=== PATIENT | female | born 1945 | race Caucasian/White ===

== ENCOUNTER 2017-11-02 14:22 | Emergency (ER) | payer OTHER, MEDICARE ==
--- NOTE | 2017-11-02 14:58 | PDOC ---
History of Present Illness - General History Source: Patient Exam Limitations: No Limitations - History of Present Illness Initial Comments: 11/02/17 15:53 72 y.o female with significant past medical history of NIDDM, HTN, HLD, GERD, who presents to the emergency room complaining of 1 week of nonproductive cough , runny nose, and congestion that worse at night when lying down and is keeping her up at night. She also notes that her chest is sore from coughing. The patient explains that she visited an Urgent Care on Wednesday 4 days ago and was told she had possible pneumonia. There was confusion about her X Ray and diagnosis so she came to the ED today for further evaluation. She reports that her ENT started her on cefdinir and nasal spray last month, which she has been taking without relief. Denies fever, chills, nausea, vomiting, abdominal pain. Denies brown or colored sputum. Denies sick contact. Denies chest pain, palpitations, SOB, difficulty breathing. Allergies: levofloxacin, iodine, penicillin, shellfish, sulfa, and tetracycline PCP: Dr. Marlon Holman <Bushra Skelton - Last Filed: 11/02/17 15:53> <Darien Huffman - Last Filed: 11/02/17 16:25> - General Chief Complaint: Respiratory Stated Complaint: EVALUATION FOR PNEUMONIA Time Seen by Provider: 11/02/17 14:57 Past History <Bushra Skelton - Last Filed: 11/02/17 15:53> - Past Medical History Anemia: No Asthma: No Cancer: No Cardiac Disorders: No CVA: No COPD: No CHF: No DVT: No Dementia: No Diabetes: Yes GI Disorders: Yes (ACID REFLUX) Disorders: No HTN: Yes Hypercholesterolemia: No Liver Disease: No Seizures: No Thyroid Disease: No - Surgical History Abdominal Surgery: Yes Appendectomy: No Cardiac Surgery: No Cholecystectomy: Yes Lung Surgery: No Neurologic Surgery: No Orthopedic Surgery: Yes (right wrist sx) - Suicide/Smoking/Psychosocial Hx Smoking Status: No Smoking History: Never smoked Have you smoked in the past 12 months: No Number of Cigarettes Smoked Daily: 0 Information on smoking cessation initiated: No Hx Alcohol Use: No Drug/Substance Use Hx: No Substance Use Type: None Hx Substance Use Treatment: No <Darien Huffman - Last Filed: 11/02/17 16:25> - Past Medical History Allergies/Adverse Reactions: Allergies Allergy/AdvReac Type Severity Reaction Status Date / Time levofloxacin [From Levaquin] Allergy Severe Cough Verified 11/02/17 14:25 iodine [Iodine] Allergy Intermediate Rash Verified 11/02/17 14:26 Penicillins Allergy Intermediate Rash Verified 11/02/17 14:26 shellfish derived Allergy Intermediate Rash Verified 11/02/17 14:26 Sulfa (Sulfonamide Allergy Intermediate Rash Verified 11/02/17 14:27 Antibiotics) [Sulfa(Sulfonamide Antibiotics)] tetracycline [Tetracycline] Allergy Intermediate Rash Verified 11/02/17 14:26 Home Medications: Ambulatory Orders Metformin HCl [Glucophage -] 500 mg PO TID 09/05/13 Repaglinide [Prandin] 1 mg PO TID 07/05/16 Wheat Dextrin [Benefiber] 1 each PO TID 07/05/16 Albuterol Sulfate Inhaler - [Ventolin Hfa Inhaler -] 1 - 2 inh PO Q4H #1 inhaler 11/02/17 Amlodipine Besylate [Norvasc -] 2.5 mg PO DAILY 11/02/17 Azithromycin [Zithromax -] 250 mg PO UTDICT #6 tab 11/02/17 Cefuroxime Axetil [Cefuroxime] 500 mg PO DAILY 11/02/17 Esomeprazole Magnesium [Nexium 24Hr] 40 mg PO DAILY 11/02/17 Ipratropium [place] 15 ml NS DAILY 11/02/17 Metoprolol Tartrate 25 mg PO DAILY 11/02/17 Rosuvastatin Calcium [Crestor] 5 mg PO DAILY 11/02/17 Review of Systems - Review of Systems Able to Perform ROS?: Yes Comments:: 11/02/17 15:53 A complete review of 10 out of 10 review of systems is taken and is negative apart from what is previously mentioned below and in the HPI. <Bushra Skelton - Last Filed: 11/02/17 15:53> *Physical Exam - Vital Signs Last Vital Signs Temp Pulse Resp BP Pulse Ox 99.4 F 80 20 131/73 98 11/02/17 14:23 11/02/17 14:23 11/02/17 14:23 11/02/17 14:23 11/02/17 14:23 - Physical Exam Comments: 11/02/17 15:53 Vitals: Triage Vital signs reviewed General Appearance: no acute distress, well nourished well developed Head: Atraumatic Eyes: Pupils equal reactive round, extraocular movement intact Nose: Nares patent bilaterally; + nasal congestion Chest Wall: Nontender Cardiac: Regular rate and rhythym, no murmurs, no rubs, no gallops Lungs: Clear to auscultation bilateral, good air movement bilaterally Skin: Warm and dry, no rashes or lesions, no rash, no petechiae Neuro: AOX3; Cranial Nerves 2-12 grossly intact Psych: Normal mood, normal affect <Bushra Skelton - Last Filed: 11/02/17 15:53> - Vital Signs Last Vital Signs Temp Pulse Resp BP Pulse Ox 99.4 F 80 20 131/73 98 11/02/17 14:23 11/02/17 14:23 11/02/17 14:23 11/02/17 14:23 11/02/17 14:23 <Darien Huffman - Last Filed: 11/02/17 16:25> ED Treatment Course - Medications Given in the ED: ED Medications Discontinued Medications Generic Name Dose Route Start Last Admin Trade Name Freq PRN Reason Stop Dose Admin Albuterol/Ipratropium 1 amp 11/02/17 15:24 11/02/17 15:50 Duoneb - NEB 11/02/17 15:25 1 amp ONCE ONE Administration <Bushra Skelton - Last Filed: 11/02/17 15:53> Medical Decision Making - Medical Decision Making 11/02/17 16:23 Reevaluation: Patient feels better after DuoNeb. History examination consistent with viral URI she has already started Cefdinir she will finish this course Given that she showed improvement after nebulizer treatment we'll discharge home with 1 week course of Ventolin MDI She'll return to emergency department for severe worsening symptoms or for any concerns otherwise she'll follow-up with her doctor this week. <Darien Huffman - Last Filed: 11/02/17 16:25> *DC/Admit/Observation/Transfer - Attestations Scribe Attestion: 11/02/17 15:54 Documentation prepared by PACHECO James, acting as medical dir for Darien Huffman MD <Bushra Skelton - Last Filed: 11/02/17 15:53> - Discharge Dispostion Admit: No <Darien Huffman - Last Filed: 11/02/17 16:25> Diagnosis at time of Disposition: URI (upper respiratory infection) - Discharge Dispostion Condition at time of disposition: Stable - Patient Instructions Printed Discharge Instructions: DI for Viral Upper Respiratory Infection -- Adult
[2017-11-02 14:59] VITALS: BP 131/73; PULSE 80; TEMP 99.4; BMI 28.2
[2017-11-02] MEDS ORDERED: ALBUTEROL SO4 2.5/IPRATROPIUM 0.5 INH SOL 3 ML VIAL.NEB. NEB ONE ×2 (15:24→15:47)
== END 2017-11-02 16:39 | disposition home or self-care (01) ==
LOC: FER 14:22
PROC: 3E0F7GC Introduction of Other Therapeutic Substance into Respiratory Tract, Via Natural or Artificial Opening (ICD-10-PCS; principal; 2017-11-02)
DX: J06.9 Acute upper respiratory infection, unspecified (principal); E11.9 Type 2 diabetes mellitus without complications; I10 Essential (primary) hypertension; E78.5 Hyperlipidemia, unspecified; K21.9 Gastro-esophageal reflux disease without esophagitis
CPT/HCPCS: 71020-TC; 99282-25

== ENCOUNTER 2017-11-05 10:52 | Emergency (ER) | payer OTHER, MEDICARE ==
[2017-11-05 11:15] VITALS: BP 135/77; PULSE 71; TEMP 97.7; BMI 28.2
--- NOTE | 2017-11-05 11:26 | PDOC ---
History of Present Illness - General Chief Complaint: Respiratory Stated Complaint: COUGH Time Seen by Provider: 11/05/17 11:11 - History of Present Illness Initial Comments: 11/05/17 13:03 Chief complaint: Productive cough and wheezing History of present illness: Being treated for respiratory illness with cefuroxime and Robitussin. Continues to cough, yellow and greenish sputum, mild wheezing. Review of systems: No fever/chills, chest pain, or shortness of breath. Remainder systems reviewed and found to be negative Past medical history: No cardiac or pulmonary disease, no asthma, no smoking Social/family history reviewed and noncontributory Physical exam: Alert and oriented well-developed well-nourished no acute distress cheerful and cooperative Afebrile, vital signs stable. No tachypnea or dyspnea. Normal oxygen saturation PERRLA, fundi benign, ENT clear Neck supple without bruit mass or nodes Chest with occasional end expiratory wheezing bilaterally, both bases posteriorly. No rales or rhonchi. No tachypnea. No splinting. CV S1 and S2 normal without murmur rub or gallop pulses full and symmetric no JVD or edema Abdomen benign Extremities no CCE Skin clear, no rash, adequate turgor and wet mucous membranes Neurological intact Impression: Mild viral bronchitis, no shortness of breath, no fever, good oxygen saturation Plan: Finish antibiotics, Robitussin for cough, rest and fluids, return to ER if there is fever, chest pain, or shortness of breath. Fully ambulatory and in no distress respiratory or otherwise upon discharge with her to follow- up as recommended Past History - Past Medical History Allergies/Adverse Reactions: Allergies Allergy/AdvReac Type Severity Reaction Status Date / Time levofloxacin [From Levaquin] Allergy Severe Cough Verified 11/02/17 14:25 iodine [Iodine] Allergy Intermediate Rash Verified 11/02/17 14:26 Penicillins Allergy Intermediate Rash Verified 11/02/17 14:26 shellfish derived Allergy Intermediate Rash Verified 11/02/17 14:26 Sulfa (Sulfonamide Allergy Intermediate Rash Verified 11/02/17 14:27 Antibiotics) [Sulfa(Sulfonamide Antibiotics)] tetracycline [Tetracycline] Allergy Intermediate Rash Verified 11/02/17 14:26 Home Medications: Ambulatory Orders Metformin HCl [Glucophage -] 500 mg PO TID 09/05/13 Repaglinide [Prandin] 1 mg PO TID 07/05/16 Wheat Dextrin [Benefiber] 1 each PO TID 07/05/16 Albuterol Sulfate Inhaler - [Ventolin Hfa Inhaler -] 1 - 2 inh PO Q4H #1 inhaler 11/02/17 Amlodipine Besylate [Norvasc -] 2.5 mg PO HS 11/02/17 Azithromycin [Zithromax -] 250 mg PO UTDICT #6 tab 11/02/17 Cefuroxime Axetil [Cefuroxime] 500 mg PO DAILY 11/02/17 Esomeprazole Magnesium [Nexium 24Hr] 40 mg PO DAILY 11/02/17 Ipratropium [place] 15 ml NS DAILY 11/02/17 Metoprolol Tartrate 25 mg PO HS 11/02/17 Rosuvastatin Calcium [Crestor] 5 mg PO HS 11/02/17 Anemia: No Asthma: No Cancer: No Cardiac Disorders: No CVA: No COPD: No CHF: No DVT: No Dementia: No Diabetes: Yes GI Disorders: Yes (ACID REFLUX) Disorders: No HTN: Yes Hypercholesterolemia: No Liver Disease: No Seizures: No Thyroid Disease: No - Surgical History Abdominal Surgery: Yes Appendectomy: No Cardiac Surgery: No Cholecystectomy: Yes Lung Surgery: No Neurologic Surgery: No Orthopedic Surgery: Yes (right wrist sx) - Suicide/Smoking/Psychosocial Hx Smoking Status: No Smoking History: Never smoked Have you smoked in the past 12 months: No Number of Cigarettes Smoked Daily: 0 Hx Alcohol Use: No Drug/Substance Use Hx: No Substance Use Type: None Hx Substance Use Treatment: No *Physical Exam - Vital Signs Last Vital Signs Temp Pulse Resp BP Pulse Ox 97.7 F 71 16 135/77 99 11/05/17 10:53 11/05/17 10:53 11/05/17 10:53 11/05/17 10:53 11/05/17 10:53 *DC/Admit/Observation/Transfer Diagnosis at time of Disposition: Acute viral bronchitis - Discharge Dispostion Disposition: HOME Condition at time of disposition: Stable Admit: No - Referrals Referrals: Marlon Holman MD [Primary Care Provider] - - Patient Instructions Printed Discharge Instructions: DI for Acute Bronchitis Additional Instructions: Finish antibiotics that you are taking. Continue Robitussin, which will serve as an expectorant (similar to Mucinex) and cough medication. Return to ER if you develop fever/chills, chest pain, shortness of breath, or increased wheezing Otherwise follow-up with your primary physician 3-5 days. - Post Discharge Activity
[2017-11-05] MEDS ORDERED: ALBUTEROL SO4 2.5/IPRATROPIUM 0.5 INH SOL 3 ML VIAL.NEB. NEB ONE ×2 (11:37→12:01)
== END 2017-11-05 13:00 | disposition home or self-care (01) ==
LOC: FER 10:52
PROC: 3E0F7GC Introduction of Other Therapeutic Substance into Respiratory Tract, Via Natural or Artificial Opening (ICD-10-PCS; principal; 2017-11-05)
DX: J20.8 Acute bronchitis due to other specified organisms (principal); B97.89 Other viral agents as the cause of diseases classified elsewhere; E11.9 Type 2 diabetes mellitus without complications; K21.9 Gastro-esophageal reflux disease without esophagitis; I10 Essential (primary) hypertension
CPT/HCPCS: 94640; 99281-25

== ENCOUNTER 2018-03-30 10:23 | Day surgery (SDC) | payer OTHER, MEDICARE ==
[2018-03-22 16:01] VITALS: BMI 28.3
[2018-03-30] MEDS ORDERED: PROPOFOL 20 ML ONE ×2 (10:33)
[2018-03-30 12:54] VITALS: TEMP 97.6
[2018-03-30 13:16] VITALS: BP 136/75; PULSE 60
--- NOTE | 2018-04-01 16:37 | PATH ---
Surgical Pathology Report Patient Name: LYLE NAVARRO [facility]. Rec. #: [id number] /Age/Gender: 1945 (Age: 73) / F Account: [id number] Location: [facility] Taken: 03/30/2018 Received: 03/30/2018 Reported: 04/01/2018 Physicians: Mitzi Reyes M.D. Specimen(s) Received A: 2ND PORTION DUODENUM B: BX ANTRUM C: GE JUNCTION Clinical History Dyspepsia, nausea Gastritis, hiatal hernia Final Diagnosis A. SECOND PORTION DUODENUM, BIOPSY: DUODENAL MUCOSA WITH NO PATHOLOGIC FINDINGS. B. ANTRUM, BIOPSY: MILD CHRONIC GASTRITIS. IMMUNOSTAIN IS NEGATIVE FOR H. PYLORI ORGANISMS. C. GE JUNCTION, BIOPSY: ESOPHAGEAL (SQUAMOUS) MUCOSA WITH NO PATHOLOGIC FINDINGS. NO COLUMNAR EPITHELIUM/INTESTINAL METAPLASIA IS IDENTIFIED. Electronically Signed Tania Quinn M.D. Gross Description A. Received in formalin, labeled "second portion of duodenum" are 2 dominguez, irregular portions of soft tissue measuring 0.3 and 0.4 cm. in greatest dimension. The specimens are submitted in toto in one cassette. B. Received in formalin, labeled "antrum" is a dominguez, irregular portion of soft tissue measuring 0.3 cm. in greatest dimension. The specimen is submitted in toto in one cassette. C. Received in formalin, labeled "GE junction" is a dominguez, irregular portion of soft tissue measuring 0.1 cm. in greatest dimension. The specimen is submitted in toto in one cassette. 03/31/2018 [place]03/31/2018
== END 2018-03-30 13:20 | disposition home or self-care (01) ==
LOC: FASU-ENDO 10:23
PROVIDERS: ATTEND Internal Medicine Gastroenterology
PROC: 0DB68ZX Excision of Stomach, Via Natural or Artificial Opening Endoscopic, Diagnostic (ICD-10-PCS; 2018-03-30)
PROC: 0DB58ZX Excision of Esophagus, Via Natural or Artificial Opening Endoscopic, Diagnostic (ICD-10-PCS; 2018-03-30)
PROC: 0DB98ZX Excision of Duodenum, Via Natural or Artificial Opening Endoscopic, Diagnostic (ICD-10-PCS; principal; 2018-03-30 12:24)
DX: K29.50 Unspecified chronic gastritis without bleeding (principal); R10.13 Epigastric pain; K44.9 Diaphragmatic hernia without obstruction or gangrene
CPT/HCPCS: 82962

== ENCOUNTER 2019-04-30 10:30 | Emergency (ER) | payer OTHER, BC ==
[2019-04-30 10:52] VITALS: BP 152/91; PULSE 77; TEMP 98.3; BMI 28.1
--- NOTE | 2019-04-30 11:37 | PDOC ---
History of Present Illness - General Chief Complaint: Pain Stated Complaint: ABD PAIN Time Seen by Provider: 04/30/19 10:34 History Source: Patient Exam Limitations: No Limitations - History of Present Illness Initial Comments: 74 yo F history DM, HTN, HL presents with intermittent diarrhea and constipation for ~1 week. Symptoms started after eating dinner at a [employer]. Denies any bloody diarrhea, vomiting. No jaundice. She followed up with Dr. Reyes, who sent bloodwork and stool tests, as well as ordering a CT scan of her abdomen and pelvis. Bloodwork was sent to [facility]. Pt presents because she is having cramping, bloating, and rectal pain at times. Denies fever. No recent abx, no recent travel. Past History - Past Medical History Allergies/Adverse Reactions: Allergies Allergy/AdvReac Type Severity Reaction Status Date / Time levofloxacin [From Levaquin] Allergy Severe Cough Verified 04/30/19 10:33 iodine [Iodine] Allergy Intermediate Rash Verified 04/30/19 10:33 Penicillins Allergy Intermediate Swelling Verified 04/30/19 10:33 shellfish derived Allergy Intermediate Rash Verified 04/30/19 10:33 Sulfa (Sulfonamide Allergy Intermediate Rash Verified 04/30/19 10:33 Antibiotics) [Sulfa(Sulfonamide Antibiotics)] tetracycline [Tetracycline] Allergy Intermediate Rash Verified 04/30/19 10:33 seasonal Allergy Uncoded 04/30/19 10:33 Home Medications: Ambulatory Orders metFORMIN HCL [Glucophage -] 1,000 mg PO BID 09/05/13 Repaglinide [Prandin] 1 mg PO TID 07/05/16 Esomeprazole Magnesium [Nexium 24Hr] 40 mg PO DAILY 11/02/17 Metoprolol Tartrate 50 mg PO HS 11/02/17 Amlodipine Besylate 2.5 mg PO DAILY 04/30/19 Atorvastatin Ca [Lipitor] 5 mg PO HS 04/30/19 Dicyclomine HCl [Bentyl -] 20 mg PO Q6H #28 tablet 04/30/19 Docusate Sodium [Stool Softener] 100 mg PO DAILY 04/30/19 Wheat Dextrin [Benefiber] 1 each PO DAILY 04/30/19 Anemia: No Asthma: No Cancer: No Cardiac Disorders: Yes (hx of angina) CVA: No COPD: No CHF: No DVT: No Dementia: No Diabetes: Yes GI Disorders: Yes (GASTROPARESIS,COLON POLYPS, DIVERTICULOSIS, GERD) Disorders: No HTN: Yes Hypercholesterolemia: Yes Liver Disease: No Seizures: No Thyroid Disease: No - Surgical History Abdominal Surgery: Yes Appendectomy: No Cardiac Surgery: Yes (CARDIAC CATH, NO STENTS) Cholecystectomy: Yes Lung Surgery: No Neurologic Surgery: No Orthopedic Surgery: Yes (R wrist sx) - Suicide/Smoking/Psychosocial Hx Smoking Status: No Smoking History: Never smoked Have you smoked in the past 12 months: No Number of Cigarettes Smoked Daily: 0 Information on smoking cessation initiated: No Hx Alcohol Use: No Drug/Substance Use Hx: No Substance Use Type: None Hx Substance Use Treatment: No Review of Systems - Review of Systems Able to Perform ROS?: Yes Comments:: GENERAL/CONSTITUTIONAL: No fever or chills. No weakness. HEAD, EYES, EARS, NOSE AND THROAT: No change in vision. No ear pain or discharge. No sore throat. CARDIOVASCULAR: No chest pain or shortness of breath. RESPIRATORY: No cough, wheezing, or hemoptysis. GASTROINTESTINAL: No nausea, vomiting. +Diarrhea and constipation, alternating. GENITOURINARY: No dysuria, frequency, or change in urination. MUSCULOSKELETAL: No joint or muscle swelling or pain. No neck or back pain. SKIN: No rash. NEUROLOGIC: No headache, vertigo, loss of consciousness, or change in strength/ sensation. ENDOCRINE: No increased thirst. No abnormal weight change. HEMATOLOGIC/LYMPHATIC: No anemia, easy bleeding, or history of blood clots. ALLERGIC/IMMUNOLOGIC: No hives or skin allergy. *Physical Exam - Vital Signs Last Vital Signs Temp Pulse Resp BP Pulse Ox 98.3 F 77 18 152/91 100 04/30/19 10:30 04/30/19 10:30 04/30/19 10:30 04/30/19 10:30 04/30/19 10:30 - Physical Exam Comments: GENERAL: Awake, alert, and fully oriented, in no acute distress HEAD: No signs of trauma EYES: PERRLA, EOMI, sclera anicteric, conjunctiva clear ENT: Auricles normal inspection, hearing grossly normal, nares patent, oropharynx clear without exudates. Moist mucosa NECK: Normal ROM, supple, no lymphadenopathy, JVD, or masses LUNGS: Breath sounds equal, clear to auscultation bilaterally. No wheezes, and no crackles HEART: Regular rate and rhythm, normal S1 and S2, no murmurs, rubs or gallops ABDOMEN: Soft, +diffuse mild tenderness, hypoactive bowel sounds. No guarding, no rebound. No masses EXTREMITIES: Normal range of motion, no edema. No clubbing or cyanosis. No cords, erythema, or tenderness NEUROLOGICAL: Cranial nerves II through XII grossly intact. Normal speech, normal gait. Motor and sensation intact SKIN: Warm, Dry, normal turgor, no rashes or lesions noted. : Noted to have two very small hemorrhoids, not thrombosed, not bleeding. ED Treatment Course - ADDITIONAL ORDERS Additional order review: Laboratory Results 04/30/19 11:00 Urine Color Yellow Urine Appearance Clear Urine pH 5.5 Urine Protein Negative Urine Glucose (UA) Trace Urine Ketones Negative Urine Blood Negative Urine Nitrite Negative Urine Bilirubin Negative Urine Urobilinogen 0.2 Ur Leukocyte Esterase Negative Medical Decision Making - Medical Decision Making 04/30/19 11:51 Contacted [facility] for her bloodwork. Will discuss with Dr. Reyes when I receive the fax. 04/30/19 12:18 Provided patient with a copy of her CT and [facility] results. The only abnormality was her blood glucose. She had a CBC, CMP, amylase, lipase, stool ova and parasites, stool culture, and CDiff. All negative. Will give bentyl as antispasmodic. Patient has f/u with Dr. Reyes tomorrow. We also discussed preparation H and witch kriss for hemorrhoids. Would not recommend stool softeners due to the intermittent diarrhea, but recommended she continue the fiber supplement. *DC/Admit/Observation/Transfer Diagnosis at time of Disposition: Hemorrhoids Qualifiers: Hemorrhoid type: unspecified Qualified Code(s): K64.9 - Unspecified hemorrhoids Diarrhea Qualifiers: Diarrhea type: unspecified type Qualified Code(s): R19.7 - Diarrhea, unspecified Constipation Qualifiers: Constipation type: unspecified constipation type Qualified Code(s): K59.00 - Constipation, unspecified - Discharge Dispostion Disposition: HOME Condition at time of disposition: Stable Decision to Admit order: No - Prescriptions Prescriptions: Dicyclomine HCl [Bentyl -] 20 mg PO Q6H #28 tablet - Referrals Referrals: Mitzi Reyes DO [Staff Physician] - - Patient Instructions Printed Discharge Instructions: DI for Hemorrhoids, DI for Diarrhea and Traveler's Diarrhea -- Adult - Post Discharge Activity
[2019-05-01 16:12] LABS: HEP A AB, IGM Negative (Negative)
== END 2019-04-30 12:25 | disposition home or self-care (01) ==
LOC: FER 10:30
DX: K64.9 Unspecified hemorrhoids (principal); R19.7 Diarrhea, unspecified; K59.00 Constipation, unspecified; E11.9 Type 2 diabetes mellitus without complications; E78.00 Pure hypercholesterolemia, unspecified; I10 Essential (primary) hypertension
CPT/HCPCS: 36415; 81003; 86708; 99283-25

== ENCOUNTER 2019-05-03 18:13 | Emergency (ER) | payer OTHER, BC | END 2019-05-03 22:55 | disposition home or self-care (01) | LOC: FER 18:13 ==

== ENCOUNTER 2019-05-04 17:31 | Inpatient (IN) | payer OTHER, BC ==
[2019-05-04] MEDS ORDERED: SODIUM CHLORIDE 1,000 ML IV STA (17:52)
[2019-05-04] MEDS ORDERED: morphine CARPU-JECT 4 MG/1 ML DISP.SYRIN IVPUSH ONE (18:02)
[2019-05-04] MEDS ORDERED: CEFTRIAXONE 1,000 MG in DEXTROSE 5%-WATER - 50 ML IVPB ONE (18:02)
[2019-05-04] MEDS ORDERED: ONDANSETRON 4 MG/2 ML VIAL IVPB ONE (18:02)
[2019-05-04] MEDS ORDERED: ONDANSETRON 4 MG/2 ML VIAL ONE (18:11)
[2019-05-04] MEDS ORDERED: morphine SULFATE 4 MG/ML VIAL ONE (18:11)
[2019-05-04 18:14] LABS: BASO % 0.2 % (0-2.0); EOS % 0.1 % (0-4.5); HEMATOCRIT 33.5 % (32.4-45.2); HEMOGLOBIN 11.4 GM/dl (10.7-15.3); LYMPH % 9.8 % (8-40); MCH 28.3 pg (25.7-33.7); MCHC 33.9 g/dl (32.0-36.0); MEAN CELL VOLUME 83.6 fl (80-96); MEAN PLT VOLUME 8.4 fl (7.5-11.1); MONO % 6.3 % (3.8-10.2); NEUT % 83.6 % (42.8-82.8); PLATELET COUNT 219 K/MM3 (134-434); RBC 4.01 M/mm3 (3.60-5.2); RDW 13.2 % (11.6-15.6); WHITE BLOOD COUNT 13.7 K/mm3 (4.0-10.8)
[2019-05-04] MEDS ORDERED: cefTRIAXone SODIUM 1 GM VIAL ONE (18:18)
[2019-05-04 18:26] LABS: ALBUMIN 3.5 g/dl (3.4-5.0); BILIRUBIN,TOTAL 0.9 mg/dl (0.2-1); CALCIUM 8.2 mg/dl (8.5-10); CREATININE 0.6 mg/dl (0.55-1.3); POTASSIUM 3.7 mmol/L (3.5-5.1); TOT PROT 6.2 g/dl (6.4-8.2)
[2019-05-04] MEDS ORDERED: ACETAMINOPHEN 1000 MG/100 ML VIAL (NON FORMULARY) IVPB ONE (18:30)
--- NOTE | 2019-05-04 18:34 | PDOC ---
Documentation entered by Alan Smith SCRIBE, acting as scribe for Talha Leon MD. Talha Leon MD: This documentation has been prepared by the Luis chapa Collisia, SCRIBE, under my direction and personally reviewed by me in its entirety. I confirm that the documentation accurately reflects all work, treatment, procedures, and medical decision making performed by me. History of Present Illness - General Chief Complaint: Pain, Acute Stated Complaint: ABD PAIN Time Seen by Provider: 05/04/19 17:33 History Source: Patient Exam Limitations: No Limitations - History of Present Illness Initial Comments: 05/04/19 18:21 The patient is a 74 year old female with a significant past medical history of diabetes, hypertension, hyperlipidemia and GERD who presents to the emergency department with diffuse epigastric pain for 2 days . The patient states that she was sent to the ED from PCP office for admission of Diverticulitis. The patient was seen in the ED yesterday for similar symptoms by which she was discharged. She states that after taking her flagyl medication today she began to have episodes of vomiting( a metallic taste) and she has not been able to keep anything down. The patient reports having a normal bm this morning. She denies any fever, chills, diarrhea. She also endorses some associated rectum pain with her symptoms as well. The patient denies any other symptoms or complaints. Past History - Past Medical History Allergies/Adverse Reactions: Allergies Allergy/AdvReac Type Severity Reaction Status Date / Time levofloxacin [From Levaquin] Allergy Severe Cough Verified 05/04/19 17:32 iodine [Iodine] Allergy Intermediate Rash Verified 05/04/19 17:32 Penicillins Allergy Intermediate Swelling Verified 05/04/19 17:32 shellfish derived Allergy Intermediate Rash Verified 05/04/19 17:32 Sulfa (Sulfonamide Allergy Intermediate Rash Verified 05/04/19 17:32 Antibiotics) [Sulfa(Sulfonamide Antibiotics)] tetracycline [Tetracycline] Allergy Intermediate Rash Verified 05/04/19 17:32 seasonal Allergy Uncoded 05/04/19 17:32 Home Medications: Ambulatory Orders metFORMIN HCL [Glucophage -] 1,000 mg PO BID 09/05/13 Repaglinide [Prandin] 1 mg PO TID 07/05/16 Esomeprazole Magnesium [Nexium 24Hr] 40 mg PO DAILY 11/02/17 Metoprolol Tartrate 50 mg PO HS 11/02/17 Amlodipine Besylate 2.5 mg PO DAILY 04/30/19 Atorvastatin Ca [Lipitor] 5 mg PO HS 04/30/19 Cefuroxime Axetil [Ceftin -] 500 mg PO Q12H #20 tablet 05/03/19 metroNIDAZOLE [Flagyl -] 500 mg PO TID #30 tablet 05/03/19 Anemia: No Asthma: No Cancer: No Cardiac Disorders: Yes (hx of angina) CVA: No COPD: No CHF: No DVT: No Dementia: No Diabetes: Yes GI Disorders: Yes (GASTROPARESIS,COLON POLYPS, DIVERTICULOSIS, GERD) Disorders: No HTN: Yes Hypercholesterolemia: Yes Liver Disease: No Seizures: No Thyroid Disease: No - Surgical History Abdominal Surgery: Yes Appendectomy: No Cardiac Surgery: Yes (CARDIAC CATH, NO STENTS) Cholecystectomy: Yes Lung Surgery: No Neurologic Surgery: No Orthopedic Surgery: Yes (R wrist sx) - Suicide/Smoking/Psychosocial Hx Smoking Status: No Smoking History: Never smoked Have you smoked in the past 12 months: No Number of Cigarettes Smoked Daily: 0 Hx Alcohol Use: No Drug/Substance Use Hx: No Substance Use Type: None Hx Substance Use Treatment: No Review of Systems - Review of Systems Able to Perform ROS?: Yes Comments:: 05/04/19 18:21 GENERAL/CONSTITUTIONAL: No fever or chills. No weakness. HEAD, EYES, EARS, NOSE AND THROAT: No change in vision. No ear pain or discharge. No sore throat. CARDIOVASCULAR: No chest pain or shortness of breath. RESPIRATORY: No cough, wheezing, or hemoptysis. GASTROINTESTINAL: (+)epigastric pain, vomiting. No nausea, diarrhea or constipation. GENITOURINARY: No dysuria, frequency, or change in urination. MUSCULOSKELETAL: No joint or muscle swelling or pain. No neck or back pain. SKIN: No rash NEUROLOGIC: No headache, vertigo, loss of consciousness, or change in strength/ sensation. ENDOCRINE: No increased thirst. No abnormal weight change. HEMATOLOGIC/LYMPHATIC: No anemia, easy bleeding, or history of blood clots. ALLERGIC/IMMUNOLOGIC: No hives or skin allergy. *Physical Exam - Vital Signs Last Vital Signs Temp Pulse Resp BP Pulse Ox 98.2 F 81 20 150/79 100 05/04/19 17:32 05/04/19 17:32 05/04/19 17:32 05/04/19 17:32 05/04/19 17:32 - Physical Exam Comments: 05/04/19 18:40 GENERAL: Awake, alert, and fully oriented, in no acute distress HEAD: No signs of trauma EYES: PERRLA, EOMI, sclera anicteric, conjunctiva clear ENT: (+)dry mucous membrane. Auricles normal inspection, hearing grossly normal , nares patent, oropharynx clear without exudates. NECK: Normal ROM, supple, no lymphadenopathy, JVD, or masses LUNGS: Breath sounds equal, clear to auscultation bilaterally. No wheezes, and no crackles HEART: Regular rate and rhythm, normal S1 and S2, no murmurs, rubs or gallops ABDOMEN: (+)general abdominal discomfort worse in periumbilical area. Soft, normoactive bowel sounds. No guarding, no rebound. No masses EXTREMITIES: Normal range of motion, no edema. No clubbing or cyanosis. No cords, erythema, or tenderness NEUROLOGICAL: Cranial nerves II through XII grossly intact. Normal speech, SKIN: Warm, Dry, normal turgor, no rashes or lesions noted. Heart Score/ECG Review #1 ECG reviewed & interpreted by me at: 18:15 05/04/19 18:34 NSR 90, nonspecific ST and T wave changes II, III, avF, I, avL, V5-V6, no std/ suhas, QTC 462 msec ED Treatment Course - LABORATORY CBC & Chemistry Diagram: 05/04/19 17:52 05/04/19 17:52 - ADDITIONAL ORDERS Additional order review: Laboratory Results 05/04/19 17:52 Sodium 130 L Potassium 3.7 Chloride 99 Carbon Dioxide 21 Anion Gap 10 BUN 8.0 Creatinine 0.6 Est GFR (CKD-EPI)AfAm 105.54 Est GFR (CKD-EPI)NonAf 91.06 Random Glucose 101 Calcium 8.2 L Total Bilirubin 0.9 AST 26 ALT 24 Alkaline Phosphatase 47 Total Protein 6.2 L Albumin 3.5 05/04/19 17:52 RBC 4.01 MCV 83.6 MCHC 33.9 RDW 13.2 MPV 8.4 Neutrophils % 83.6 H Lymphocytes % 9.8 Monocytes % 6.3 Eosinophils % 0.1 Basophils % 0.2 - Medications Given in the ED: ED Medications Discontinued Medications Generic Name Dose Route Start Last Admin Trade Name Jovita PRN Reason Stop Dose Admin Ceftriaxone Sodium 1,000 mg/ 50 mls @ 100 mls/hr 05/04/19 18:02 05/04/19 18: 22 Dextrose IVPB 05/04/19 18:31 100 mls/hr ONCE ONE Administration Morphine Sulfate 4 mg 05/04/19 18:02 05/04/19 18:15 Morphine Injection - IVPUSH 05/04/19 18:03 4 mg ONCE ONE Administration Ondansetron HCl 4 mg 05/04/19 18:02 05/04/19 18:15 Zofran Injection IVPB 05/04/19 18:03 4 mg ONCE ONE Administration Medical Decision Making - Medical Decision Making 05/04/19 18:33 A portion of this note was documented by scribe services under my direction. I have reviewed the details of the note, within reason, and agree with the documentation with the following case summary and management plan written by me. Patient treated in the ED. Nursing notes are reviewed and incorporated into the medical decision-making. Vital signs reviewed. Peripheral IV access obtained by the nurse, laboratory studies are drawn and sent, reviewed and interpreted by myself. Vital Signs Temp Pulse Resp BP Pulse Ox 98.2 F 81 20 150/79 100 05/04/19 17:32 05/04/19 17:32 05/04/19 17:32 05/04/19 17:32 05/04/19 17:32 74-year-old female with history of diabetes, hypertension sent in by her primary care physician for admission for acute diverticulitis. The patient was recently seen here yesterday diagnosed with acute on complicated diverticulitis. The patient is discharged home on Ceftin and Flagyl. Patient reports that she tolerated Ceftin well but reported severe nausea and vomiting with the Flagyl. The patient stated that she has been unable to tolerate any of her medication and has severe nausea and unable tolerate by mouth fluids. Patient contacted her doctor who then directed patient ER. Patient denies fevers but reports persistent abdominal pain of similar quality and intensity as yesterday. Given that the patient has failed outpatient management unable to tolerate by mouth, the patient should be admitted to the hospital for IV antibiotics. We'll initiate IV ceftriaxone and IV Flagyl given her multiple drug ALLERGIES. Patient reports tolerating cephalosporins prior so we'll continue it. We'll give IV fluids and admit the patient to the hospital. 05/04/19 18:51 CBC, BMP 05/04/19 17:52 05/04/19 17:52 CMP Sodium 130 mmol/L (136-145) L 05/04/19 17:52 Potassium 3.7 mmol/L (3.5-5.1) 05/04/19 17:52 Chloride 99 mmol/L (98-107) 05/04/19 17:52 Carbon Dioxide 21 mmol/L (21-32) 05/04/19 17:52 Anion Gap 10 MMOL/L (8-16) 05/04/19 17:52 BUN 8.0 mg/dl (7-18) 05/04/19 17:52 Creatinine 0.6 mg/dl (0.55-1.3) 05/04/19 17:52 Est GFR (CKD-EPI)AfAm 105.54 05/04/19 17:52 Est GFR (CKD-EPI)NonAf 91.06 05/04/19 17:52 Random Glucose 101 mg/dl (74-106) 05/04/19 17:52 Calcium 8.2 mg/dl (8.5-10) L 05/04/19 17:52 Total Bilirubin 0.9 mg/dl (0.2-1) 05/04/19 17:52 AST 26 U/L (15-37) 05/04/19 17:52 ALT 24 U/L (13-61) 05/04/19 17:52 Alkaline Phosphatase 47 U/L (45-117) 05/04/19 17:52 Troponin I < 0.03 ng/ml (0.00-0.05) 05/04/19 17:52 Total Protein 6.2 g/dl (6.4-8.2) L 05/04/19 17:52 Albumin 3.5 g/dl (3.4-5.0) 05/04/19 17:[address] Anthony. He accepts to med/surg admission. Case discussed in detail with admitting physician including history, physical exam and ancillary studies. Admitting physician has assumed care for the patient, will follow all pending diagnostics and will complete the evaluation and treatment. *DC/Admit/Observation/Transfer Diagnosis at time of Disposition: Diverticulitis - Discharge Dispostion Condition at time of disposition: Stable Decision to Admit order: Yes - Referrals Referrals: Marlon Holman MD [Primary Care Provider] - - Patient Instructions - Post Discharge Activity
[2019-05-04] MEDS ORDERED: ACETAMINOPHEN INJECTION 100 ML IVPB ONE (18:35)
--- NOTE | 2019-05-04 19:46 | HP ---
CHIEF COMPLAINT: Abdominal Pain, Vomiting PCP: Dr. Cain HISTORY OF PRESENT ILLNESS: This is a 74 y/o woman with a PMHx of HTN, HLD, CAD s/p Cardiac Cath, Angina, DM. Who presents to the ED sent in by his PMD for admission for epigastric pain x2 days. Patient was seen in the ED 04/30, 05/03 diagnosed with Diverticulitis and placed on Flagyl, Ceftin. Patient reports having a metallic taste and vomiting -non bloody, bilious after taking Flagyl, unable to tolerate it and anything PO. Patient reports being constipated and not urinating yesterday taking miralax, benefiber and stool softeners. Patient reports having loose stools, rectal pain, and abdominal cramping, and voiding today. Patient reports having diverticulitis years ago taking ABX without issue. Patient reports being seen last Wednesday by her GI for same. Patient denies fever, chills, cough, CP, palpitations, dysuria. ER course was notable for: (1) WBC 13.7, L shift (2) NA 130 (3) Stool Occult- negative Recent Travel: None PAST MEDICAL HISTORY: HTN HLD DM CAD- Cardiac Cath- no stents Angina GERD Diverticulosis Gastroparesis PAST SURGICAL HISTORY: Cholecystectomy R - Wrist Social History: Smoking: Never Alcohol: None Drugs: None Resides with spouse, independent, retired Family History: Grandmother- DM Allergies levofloxacin [From Levaquin] Allergy (Severe, Verified 05/04/19 17:32) Cough PALPITATIONS iodine [Iodine] Allergy (Intermediate, Verified 05/04/19 17:32) Rash Penicillins Allergy (Intermediate, Verified 05/04/19 17:32) Swelling shellfish derived Allergy (Intermediate, Verified 05/04/19 17:32) Rash Sulfa (Sulfonamide Antibiotics) [Sulfa(Sulfonamide Antibiotics)] Allergy ( Intermediate, Verified 05/04/19 17:32) Rash tetracycline [Tetracycline] Allergy (Intermediate, Verified 05/04/19 17:32) Rash seasonal Allergy (Uncoded 05/04/19 17:32) HOME MEDICATIONS: Home Medications Medication Instructions Recorded metFORMIN HCL [Glucophage -] 1,000 mg PO BID 09/05/13 Repaglinide [Prandin] 1 mg PO TID 07/05/16 Esomeprazole Magnesium [Nexium 40 mg PO DAILY 11/02/17 24Hr] Metoprolol Tartrate 50 mg PO HS 11/02/17 Amlodipine Besylate 2.5 mg PO DAILY 04/30/19 Atorvastatin Ca [Lipitor] 5 mg PO HS 04/30/19 Cefuroxime Axetil [Ceftin -] 500 mg PO Q12H #20 tablet 05/03/19 metroNIDAZOLE [Flagyl -] 500 mg PO TID #30 tablet 05/03/19 REVIEW OF SYSTEMS CONSTITUTIONAL: Absent: fever, chills, diaphoresis, generalized weakness, malaise, loss of appetite, weight change HEENT: Absent: rhinorrhea, nasal congestion, throat pain, throat swelling, difficulty swallowing, mouth swelling, ear pain, eye pain, visual changes CARDIOVASCULAR: Absent: chest pain, syncope, palpitations, irregular heart rate, lightheadedness , peripheral edema RESPIRATORY: Absent: cough, shortness of breath, dyspnea with exertion, orthopnea, wheezing, stridor, hemoptysis GASTROINTESTINAL: abdominal pain, nausea, vomiting Absent: abdominal distension, diarrhea, constipation, melena, hematochezia GENITOURINARY: Absent: dysuria, frequency, urgency, hesitancy, hematuria, flank pain, genital pain MUSCULOSKELETAL: Absent: myalgia, arthralgia, joint swelling, back pain, neck pain SKIN: Absent: rash, itching, pallor HEMATOLOGIC/IMMUNOLOGIC: Absent: easy bleeding, easy bruising, lymphadenopathy, frequent infections ENDOCRINE: Absent: unexplained weight gain, unexplained weight loss, heat intolerance, cold intolerance NEUROLOGIC: Absent: headache, focal weakness or paresthesias, dizziness, unsteady gait, seizure, mental status changes, bladder or bowel incontinence PSYCHIATRIC: Absent: anxiety, depression, suicidal or homicidal ideation, hallucinations. PHYSICAL EXAMINATION Vital Signs - 24 hr 05/04/19 17:32 Temperature 98.2 F Pulse Rate 81 Respiratory 20 Rate Blood Pressure 150/79 O2 Sat by Pulse 100 Oximetry (%) GENERAL: Awake, alert, and fully oriented, in mild distress. HEAD: Normal with no signs of trauma. EYES: Pupils equal, round and reactive to light, extraocular movements intact, sclera anicteric, conjunctiva clear. No lid lag. EARS, NOSE, THROAT: Dry mucous membranes. Ears normal, nares patent, oropharynx clear without exudates. NECK: Normal range of motion, supple without lymphadenopathy, JVD, or masses. LUNGS: Breath sounds equal, clear to auscultation bilaterally. No wheezes, and no crackles. No accessory muscle use. HEART: Regular rate and rhythm, normal S1 and S2 without murmur, rub or gallop. ABDOMEN: Generalized tenderness, distended, hyperactive bowel sounds, Soft no guarding, no rebound, no masses. No hepatomegaly or splenomegaly. MUSCULOSKELETAL: Normal range of motion at all joints. No bony deformities or tenderness. No CVA tenderness. UPPER EXTREMITIES: 2+ pulses, warm, well-perfused. No cyanosis. No clubbing. No peripheral edema. LOWER EXTREMITIES: 2+ pulses, warm, well-perfused. No calf tenderness. Trace b/ l peripheral edema. NEUROLOGICAL: Cranial nerves II-XII intact. Normal speech. Gait not observed. PSYCHIATRIC: Cooperative. Good eye contact. Appropriate mood and affect. SKIN: Warm, dry, normal turgor, no rashes or lesions noted, normal capillary refill. Laboratory Results - last 24 hr 05/04/19 05/04/19 05/04/19 17:52 17:52 17:52 WBC 13.7 H RBC 4.01 Hgb 11.4 Hct 33.5 MCV 83.6 MCH 28.3 MCHC 33.9 RDW 13.2 Plt Count 219 MPV 8.4 Absolute Neuts (auto) 11.5 Neutrophils % 83.6 H Lymphocytes % 9.8 Monocytes % 6.3 Eosinophils % 0.1 Basophils % 0.2 Sodium 130 L Potassium 3.7 Chloride 99 Carbon Dioxide 21 Anion Gap 10 BUN 8.0 Creatinine 0.6 Est GFR (CKD-EPI)AfAm 105.54 Est GFR (CKD-EPI)NonAf 91.06 Random Glucose 101 Lactic Acid 2.0 Calcium 8.2 L Total Bilirubin 0.9 AST 26 ALT 24 Alkaline Phosphatase 47 Troponin I Total Protein 6.2 L Albumin 3.5 Lipase 79 05/04/19 17:52 WBC RBC Hgb Hct MCV MCH MCHC RDW Plt Count MPV Absolute Neuts (auto) Neutrophils % Lymphocytes % Monocytes % Eosinophils % Basophils % Sodium Potassium Chloride Carbon Dioxide Anion Gap BUN Creatinine Est GFR (CKD-EPI)AfAm Est GFR (CKD-EPI)NonAf Random Glucose Lactic Acid Calcium Total Bilirubin AST ALT Alkaline Phosphatase Troponin I < 0.03 Total Protein Albumin Lipase ASSESSMENT/PLAN: This is a 74 y/o woman with a PMHx of: HTN, HLD, CAD (cardiac cath), Angina, Gastroparesis, DM. Admitted for Acute Diverticulitis, Failed Outpatient Therapy , Intractable Abdominal Pain for further evaluation of their emergent condition. Plan: See Problem List FEN NS@75ml/hr Replete lytes prn Clear Na, Diabetic Diet DVT ppx OOB SCDs Heparin SQ Dispo: Requires Inpatient Care Problem List - Problem (1) Diverticulitis Assessment/Plan: Failed Outpatient Therapy secondary to unable to tolerate PO meds CTAP from 05/03- Diverticulitis WBC 13.7, Neutrophils 83.6 Lactic Acid 2.0 Rocephin, Flagyl given in ED, will continue Appreciate ID consult- multiple drug allergies- ABX Appreciate GI consult Morphine Sulfate prn Clear Liquid Diet ad nasir IVF Monitor CBC, BMP Monitor vitals Code(s): K57.92 - DVTRCLI OF INTEST, PART UNSP, W/O PERF OR ABSCESS W/O BLEED (2) Abdominal pain Assessment/Plan: See above Code(s): R10.9 - UNSPECIFIED ABDOMINAL PAIN (3) GERD (gastroesophageal reflux disease) Assessment/Plan: Continue PPI Code(s): K21.9 - GASTRO-ESOPHAGEAL REFLUX DISEASE WITHOUT ESOPHAGITIS (4) CAD (coronary artery disease) Assessment/Plan: Continue home meds Code(s): I25.10 - ATHSCL HEART DISEASE OF [place] CORONARY ARTERY W/O ANG PCTRS (5) HTN (hypertension) Assessment/Plan: stable Continue home meds Monitor renal function Code(s): I10 - ESSENTIAL (PRIMARY) HYPERTENSION (6) HLD (hyperlipidemia) Assessment/Plan: Continue home med Code(s): E78.5 - HYPERLIPIDEMIA, UNSPECIFIED Visit type - Emergency Visit Emergency Visit: Yes ED Registration Date: 05/04/19 Care time: The patient presented to the Emergency Department on the above date and was hospitalized for further evaluation of their emergent condition. - New Patient This patient is new to me today: Yes Date on this admission: 05/04/19 - Critical Care Critical Care patient: No
[2019-05-04] MEDS ORDERED: METOCLOPRAMIDE HCL INJECTION 10 MG/2 ML VIAL IVPUSH ONE (19:54)
[2019-05-04] MEDS ORDERED: METOCLOPRAMIDE HCL INJECTION 10 MG/2 ML VIAL ONE (19:55)
[2019-05-04] MEDS: SODIUM CHLORIDE 1,000 ML IV SCH (19:59)
[2019-05-04 20:50] VITALS: BMI 27.9
[2019-05-04] MEDS: HEPARIN NA (PORCINE) 5,000 UNITS/ML 1ML VIAL SQ SCH (21:24)
[2019-05-04] MEDS ORDERED: morphine SULFATE 4 MG/ML VIAL IVPUSH PRN (22:00)
[2019-05-05] MEDS ORDERED: ONDANSETRON 4 MG/2 ML VIAL IVPUSH ONE (00:04)
[2019-05-05 08:09] LABS: BASO % 0.1 % (0-2.0); EOS % 0.1 % (0-4.5); HEMATOCRIT 33.9 % (32.4-45.2); HEMOGLOBIN 11.4 GM/dl (10.7-15.3); LYMPH % 9.1 % (8-40); MCH 28.9 pg (25.7-33.7); MCHC 33.7 g/dl (32.0-36.0); MEAN CELL VOLUME 85.8 fl (80-96); MONO % 5.8 % (3.8-10.2); NEUT % 84.9 % (42.8-82.8); PLATELET COUNT 242 K/MM3 (134-434); RBC 3.95 M/mm3 (3.60-5.2); RDW 13.6 % (11.6-15.6); WHITE BLOOD COUNT 15.3 K/mm3 (4.0-10.8)
[2019-05-05 08:20] LABS: CALCIUM 7.8 mg/dl (8.5-10); CREATININE 0.6 mg/dl (0.55-1.3); POTASSIUM 3.1 mmol/L (3.5-5.1)
--- NOTE | 2019-05-05 09:57 | PN ---
Progress Note (short form) - Note Progress Note: ID CONSULT DICTATED ACUTE UNCOMPLICATED SIGMOID DIVERTICULITIS MULTIPLE ANTIBIOTIC ALLERGIES AWAIT C/S EMPIRIC CEFTRIAXONE/ FLAGYL
[2019-05-05] MEDS ORDERED: amLODIPine BESYLATE 5 MG TABLET (FP) PO SCH (10:00)
[2019-05-05] MEDS ORDERED: CEFTRIAXONE 1 G/50 ML PREMIX 50 ML IVPB SCH (10:00)
[2019-05-05] MEDS: FAMOTIDINE 20 MG/50 ML IVPB 20 MG/50 ML MG IVPB SCH ×2 (10:04→21:14)
[2019-05-05] MEDS: HEPARIN NA (PORCINE) 5,000 UNITS/ML 1ML VIAL SQ SCH ×2 (10:05→21:25)
--- NOTE | 2019-05-05 11:26 | EKG ---
Test Reason : Blood Pressure : / mmHG Vent. Rate : 090 BPM Atrial Rate : 090 BPM P-R Int : 168 ms QRS Dur : 080 ms QT Int : 378 ms P-R-T Axes : 071 036 -34 degrees QTc Int : 462 ms NORMAL SINUS RHYTHM WITH SINUS ARRHYTHMIA POSSIBLE LATERAL INFARCT , AGE UNDETERMINED T WAVE ABNORMALITY, CONSIDER INFERIOR ISCHEMIA ABNORMAL ECG Confirmed by ADITYA NARVAEZ MD ([id number]) on 05/05/2019 11:25:48 AM Referred By: DR MENDOZA Confirmed By:ADITYA NARVAEZ MD
--- NOTE | 2019-05-05 12:51 | CONS ---
DATE OF CONSULTATION: DATE OF DICTATION: 05/05/2019 HISTORY OF PRESENT ILLNESS: The patient is a 74-year-old female who is evaluated for acute diverticulitis. The patient was evaluated in the emergency room on May 04, 2019, with complaints of worsening epigastric and left lower quadrant abdominal pain. The patient states that symptoms occurred on the day prior to Fathers Day, 2018. She had had a meal at a steak house. While there, she developed an acute episode of diarrhea. Since that time, she had complaints of intermittent abdominal pain associated with loose bowel movements. She was seen on 2 occasions in the emergency room at [facility]. On April 30, 2019, she was evaluated after presenting with intermittent diarrhea and constipation. She had had a CT scan on April 27, 2019, which was negative for acute pathology. She was discharged home with followup with her news content specialist. The patient returned to the emergency room on May 03, 2019, at which time, she was evaluated, and a followup CT scan was performed. In comparison to the previous CT scan of April 27, there was interval development of uncomplicated acute sigmoid diverticulitis. She was discharged from the emergency room with oral cefuroxime and Flagyl. Patient states that while home, she continued to have pain and was unable to tolerate the oral antibiotic therapy. She developed nausea, vomiting, and was unable to keep anything down. She contacted her primary care physician and was advised to return to the emergency room. The patient is now admitted. Cultures were obtained. She was empirically treated with ceftriaxone and Flagyl. She has some improvement in the abdominal pain. No complaints of recurrent nausea or vomiting. She continues to have loose non-bloody stool. No associated fever or chills. PAST MEDICAL HISTORY: Positive for diverticulosis, hypertension, diabetes mellitus, hyperlipidemia, gastroesophageal reflux, coronary artery disease. PAST SURGICAL HISTORY: Status post cholecystectomy. ALLERGIES: Multiple antibiotic allergies including PENICILLIN (facial swelling), SULFA (rash), LEVAQUIN (palpitations), and TETRACYCLINE. CURRENT MEDICATIONS: Include Tylenol, amlodipine, Lipitor, ceftriaxone, metronidazole. SOCIAL HISTORY: She lives at home with her significant other. She is a nonsmoker, nondrinker. SYSTEMS REVIEW: Neurologic: No loss of consciousness, seizure activity, or focal weakness. Cardiac: Negative for chest pain or palpitations. Respiratory: Negative for cough or sputum production. Gastrointestinal: As per HPI. Genitourinary: Negative for urinary tract infection. LABORATORY DATA: White count 15.3, hematocrit 33.9, platelet count 242. Chemistries: BUN 6, creatinine 0.6. Liver enzymes are normal. Urinalysis negative. Blood cultures pending. PHYSICAL EXAMINATION: General: The patient is awake and alert, not acutely toxic-appearing, supine in bed. Vital signs: Temperature 98.4, blood pressure 129/61, pulse 83 and regular, respirations 18 per minute. HEENT: Sclerae anicteric. Heart: Heart sounds S1, S2. Lungs: Clear bilaterally. No rhonchi, rales, or wheezing. Abdomen: Hypoactive bowel sounds. There is mild left lower quadrant tenderness to deep palpation. No mass, rebound, or rigidity. Extremities: Negative for edema. Negative Homans sign. IMPRESSION: 1. Acute uncomplicated sigmoid diverticulitis. 2. Multiple antibiotic allergies. 3. Leukocytosis. Await culture results and GI evaluation, empiric antibiotic coverage in this patient with multiple antibiotic allergies with ceftriaxone and metronidazole. Thank you for the kind referral. ADITYA PADILLA M.D. [id number]
--- NOTE | 2019-05-05 12:59 | PN ---
Progress Note, Physician Chief Complaint: abdominal pain History of Present Illness: 74 y/o woman with a PMHx of HTN, HLD, CAD s/p Cardiac Cath, Angina, DM. Who presents to the ED sent in by his PMD for admission for epigastric pain for the past 2 days. - Current Medication List Current Medications: Active Medications Amlodipine Besylate (Norvasc -) 2.5 mg PO DAILY [facility] Last Admin: 05/05/19 10:05 Dose: 2.5 mg Atorvastatin Calcium (Lipitor -) 5 mg PO HS [facility] Heparin Sodium (Porcine) (Heparin -) 5,000 unit SQ BID [facility] Last Admin: 05/05/19 10:05 Dose: 5,000 unit Sodium Chloride (Normal Saline -) 1,000 mls @ 75 mls/hr IV ASDIR [facility] Last Admin: 05/04/19 19:59 Dose: 75 mls/hr Metronidazole (Flagyl 500mg Premixed Ivpb -) 500 mg in 100 mls @ 100 mls/hr IVPB Q8H-IV [facility] Last Admin: 05/05/19 10:04 Dose: 100 mls/hr Famotidine/Sodium Chloride (Pepcid 20 Mg Premixed Ivpb -) 20 mg in 50 mls @ 100 mls/hr IVPB BID [facility] Last Admin: 05/05/19 10:04 Dose: 100 mls/hr Ceftriaxone Sodium (Ceftriaxone 2 Gm-D5w Bag) 2 gm in 50 mls @ 100 mls/hr IVPB DAILY [facility]; Protocol Metoprolol Tartrate (Lopressor -) 50 mg PO HS [facility] Morphine Sulfate (Morphine Sulfate) 4 mg IVPUSH Q6H PRN PRN Reason: PAIN LEVEL 7 - 10 Last Admin: 05/05/19 02:14 Dose: 4 mg - Objective Vital Signs: Vital Signs Temperature 98.4 F 05/05/19 06:00 Pulse Rate 83 05/05/19 06:00 Respiratory Rate 18 05/05/19 09:00 Blood Pressure 129/61 05/05/19 06:00 O2 Sat by Pulse Oximetry (%) 99 05/05/19 09:00 Constitutional: Yes: Well Nourished, No Distress, Calm Eyes: Yes: WNL HENT: Yes: WNL Neck: Yes: WNL Cardiovascular: Yes: WNL Respiratory: Yes: WNL Gastrointestinal: Yes: Soft, Hypoactive Bowel Sounds, Tenderness, Tenderness, Epigastrium Genitourinary: Yes: WNL Musculoskeletal: Yes: WNL Extremities: Yes: WNL Edema: No Peripheral Pulses WNL: Yes Integumentary: Yes: WNL Neurological: Yes: WNL ...Motor Strength: WNL Psychiatric: Yes: WNL Labs: CBC, BMP 05/05/19 07:42 05/05/19 07:42 Assessment/Plan 74 yo lady comes in with acute diverticulitis. ID eval appreciated. on IV ceftriaxone, PO flagyl. surgical eval pending. -clear liquid diet. will likely advance to low residue tomorrow. -GI, DVT prophylaxis. -HTN: on amlodipine. -type 2 DM: holding oral meds. will resume tomorrow if diet is advanced. -OOB as tolerated -will DC home once PO diet tolerated, off IV meds.
--- NOTE | 2019-05-05 13:26 | CON.PULM ---
Consult Consult Specialty:: PULMONARY Referred by:: JANET Reason for Consultation:: SOB - History of Present Illness Chief Complaint: SOB History of Present Illness: RECENT DIAGNOSIS OF ACUTE DIVERTICULITIS SENT HOME FROM ER THE DAY BEFORE. SHE DEVELOPED N/V AND VLOATING WITH INABILITY TO KEEP LIQUIDS DOWN. I SUGGESTED ADMISSION FOR IV ABS TREATMENT AND FLUID RESUSCITATION. - History Source History Provided By: Patient, Medical Record Limitations to Obtaining History: No Limitations - Past Medical History ADJUSTER AND INSPECTOR: No: Alzheimer's Cardio/Vascular: No: AFIB Pulmonary: No: Asthma Gastrointestinal: Yes: GERD, Hiatal Hernia (GASTROPARESIS, VISCERAL NEUROPATHY) , Other Hepatobiliary: No: Cirrhosis Renal/: No: Renal Failure Reproductive: Yes: Postmenopausal ...: No Heme/Onc: Yes: Anemia Endocrine: Yes: Diabetes Mellitus - Past Surgical History Past Surgical History: Yes: Hysterectomy - Alcohol/Substance Use Hx Alcohol Use: No History of Substance Use: reports: None - Smoking History Smoking history: Never smoked Have you smoked in the past 12 months: No Aproximately how many cigarettes per day: 0 - Social History ADL: Independent Occupation: Retired History of Recent Travel: No Home Medications - Allergies Allergies/Adverse Reactions: Allergies Allergy/AdvReac Type Severity Reaction Status Date / Time levofloxacin [From Levaquin] Allergy Severe Cough Verified 05/04/19 17:32 iodine [Iodine] Allergy Intermediate Rash Verified 05/04/19 17:32 Penicillins Allergy Intermediate Swelling Verified 05/04/19 17:32 shellfish derived Allergy Intermediate Rash Verified 05/04/19 17:32 Sulfa (Sulfonamide Allergy Intermediate Rash Verified 05/04/19 17:32 Antibiotics) [Sulfa(Sulfonamide Antibiotics)] tetracycline [Tetracycline] Allergy Intermediate Rash Verified 05/04/19 17:32 seasonal Allergy Uncoded 05/04/19 17:32 - Home Medications Home Medications: Ambulatory Orders metFORMIN HCL [Glucophage -] 1,000 mg PO BID 09/05/13 Repaglinide [Prandin] 1 mg PO TID 07/05/16 Esomeprazole Magnesium [Nexium 24Hr] 40 mg PO DAILY 11/02/17 Metoprolol Tartrate 50 mg PO HS 11/02/17 Amlodipine Besylate 2.5 mg PO DAILY 04/30/19 Atorvastatin Ca [Lipitor] 5 mg PO HS 04/30/19 Cefuroxime Axetil [Ceftin -] 500 mg PO Q12H #20 tablet 05/03/19 metroNIDAZOLE [Flagyl -] 500 mg PO TID #30 tablet 05/03/19 Family Disease History - Family Disease History Family History: Unremarkable Review of Systems - Review of Systems Constitutional: reports: Fever, Lethargy, Loss of Appetite, Unintentional Wgt. Loss, Weakness Eyes: denies: Blurred Vision HENT: denies: Difficult Swallowing Neck: denies: Decreased ROM Cardiovascular: denies: Chest Pain Respiratory: reports: SOB. denies: Cough Gastrointestinal: reports: Abdominal Pain, Bloating, Nausea, Vomiting Genitourinary: reports: No Symptoms Breasts: reports: No Symptoms Reported Musculoskeletal: reports: No Symptoms Integumentary: reports: No Symptoms Physical Exam Vital Sings: Vital Signs Temperature 98.4 F 05/05/19 06:00 Pulse Rate 83 05/05/19 06:00 Respiratory Rate 18 05/05/19 09:00 Blood Pressure 129/61 05/05/19 06:00 O2 Sat by Pulse Oximetry (%) 99 05/05/19 09:00 Constitutional: Yes: Anxious Eyes: Yes: EOM Intact HENT: Yes: Normocephalic Neck: Yes: Trachea Midline Cardiovascular: Yes: Regular Rate and Rhythm Respiratory: Yes: CTA Bilaterally Gastrointestinal: Yes: Hyperactive Bowel Sounds, Tenderness, Epigastrium. No: Tenderness, Rebound Renal/: Yes: WNL Breast(s): Yes: WNL Musculoskeletal: Yes: WNL Edema: No Neurological: Yes: Alert Labs: CBC, BMP 05/05/19 07:42 05/05/19 07:42 REST REVIEWED Imaging - Results Chest X-ray: Report Reviewed, Image Reviewed Cat Scan: Report Reviewed Problem List - Problems (1) Abdominal pain Code(s): R10.9 - UNSPECIFIED ABDOMINAL PAIN (2) Diverticulitis Code(s): K57.92 - DVTRCLI OF INTEST, PART UNSP, W/O PERF OR ABSCESS W/O BLEED (3) HTN (hypertension) Code(s): I10 - ESSENTIAL (PRIMARY) HYPERTENSION Assessment/Plan ACUTE SIGMOID DIVERTICULITIS REQUIRING IV FLUIDS/ABS O2 PRN DIET MODIFICATION WITH ADVANCEMENT TOLERATED Patrice HILL MD
[2019-05-05] MEDS ORDERED: morphine SULFATE 4 MG/ML VIAL IVPUSH PRN (14:06)
[2019-05-05] MEDS: ONDANSETRON 4 MG/2 ML VIAL IVPB PRN (14:37)
[2019-05-05] MEDS ORDERED: ACETAMINOPHEN 650 MG/20.3 ML ORAL SOLUTION (CUPS) PO PRN (15:10)
[2019-05-05] MEDS: ACETAMINOPHEN 1000 MG/100 ML VIAL (NON FORMULARY) IVPB PRN (16:24)
[2019-05-05] MEDS ORDERED: HYOSCYAMINE SULFATE 0.125 MG TABLET PO PRN (17:59)
--- NOTE | 2019-05-05 17:59 | PN ---
Progress Note (short form) - Note Progress Note: gi consult dictated
[2019-05-05] MEDS: SODIUM CHLORIDE 1,000 ML IV SCH (20:00)
--- NOTE | 2019-05-05 20:53 | CONS ---
DATE OF CONSULTATION: DATE OF DICTATION: 05/05/2019 GASTROINTESTINAL CONSULTATION HISTORY OF PRESENT ILLNESS: The patient is a 74-year-old female past medical history of hypertension, hyperlipidemia, CAD status post cardiac catheterization, angina, diabetes, who is an outpatient of [facility] who I saw last earlier in the week. She had complaints of abdominal pain. Imaging done last week within normal limits, except for diverticulosis. Labs were also within normal limits at the time. She apparently has presented to the hospital on multiple occasions secondary to abdominal pain. On the she was diagnosed with diverticulosis, and she was placed on Flagyl and Ceftin; however, after taking the Flagyl, she developed nausea and vomiting. She does admit to intermittent constipation, but prior to this she was actually with diarrhea a couple weeks ago after eating at a steakhouse. She currently still admits to abdominal bloating and some lower abdominal pain and cramping. She denies fevers, chills, nausea or vomiting today. PAST MEDICAL AND SURGICAL HISTORY: As listed in the HPI. ALLERGIES: LEVAQUIN, IODINE, PENICILLIN, SHELLFISH. PAST SURGICAL HISTORY: Cholecystectomy and wrist surgery. ADDITIONAL PAST MEDICAL HISTORY: Includes gastroparesis and diverticulosis. FAMILY HISTORY: No GI or gynecological malignancy. SOCIAL HISTORY: Smokes. She drinks socially, and no drug use. HOME MEDICATIONS: Include metformin, Prandin, Nexium, metoprolol, cefuroxime, Flagyl, atorvastatin, and prokinetic agent. REVIEW OF SYSTEMS: As per the HPI. She has not had a recent colonoscopy; her last colonoscopy was done approximately 5 years ago, and she is scheduled for an outpatient colonoscopy with ms in a couple of months. Her past endoscopy was done approximately 4 to 6 months ago and was significant for gastritis. PHYSICAL EXAMINATION: VITAL SIGNS: Temperature 97, pulse 89, blood pressure 127/67, pulse oximetry 95%, respiratory rate 19. GENERAL: In no acute distress. HEENT: Anicteric sclerae. CARDIOVASCULAR: S1, S2, regular rate and rhythm. LUNGS: Bilaterally clear to auscultation. ABDOMEN: Tympanic, only tender to deep palpation in the right and left lower quadrant without rebound or guarding. EXTREMITIES: No edema. LABORATORY: White blood cell count 15, hemoglobin and hematocrit 11/33, MCV 85, platelet count 242, sodium 132, potassium 3.1, BUN/creatinine 6/0.6, glucose 116. She had her last abdomen and pelvis CT scan done on the which revealed interval development of acute uncomplicated sigmoid diverticulitis in comparison to the scan done on the . IMPRESSION: Acute uncomplicated sigmoid diverticulitis. RECOMMENDATION: Continue on intravenous antibiotics. Clear liquid diet. Would not advance her diet further until her abdominal pain is much improved. Would continue on clear liquids definitely for an additional 24 hours and slowly advance her to full liquid diet, and then to a low residue lactose free diet. Pain management will start her on antispasm therapy, avoid additional narcotics, replete electrolytes, encourage ambulation. She is again already scheduled for an outpatient colonoscopy with me in approximately 6 to 8 weeks. Will follow. DO ERIN DIALLO/[id number]
[2019-05-05] MEDS: METOPROLOL TARTRATE 50 MG TABLET (FP) PO SCH (21:14)
[2019-05-05] MEDS: ATORVASTATIN CA 10 MG TABLET (FP) PO SCH (21:15)
[2019-05-06] MEDS ORDERED: PT OWN MED DRAWER 7, Y5N ONE (00:12)
[2019-05-06] MEDS: ONDANSETRON 4 MG/2 ML VIAL IVPB PRN ×3 (00:38→20:12)
[2019-05-06] MEDS: ACETAMINOPHEN 1000 MG/100 ML VIAL (NON FORMULARY) IVPB PRN ×2 (02:36→20:11)
[2019-05-06] MEDS ORDERED: POTASSIUM CHLORIDE TABS 20 MEQ TABLET.ER (FP) PO ONE ×2 (07:17→07:21)
[2019-05-06 08:26] LABS: HEMATOCRIT 32.7 % (32.4-45.2); HEMOGLOBIN 10.7 GM/dl (10.7-15.3); MCH 27.8 pg (25.7-33.7); MCHC 32.6 g/dl (32.0-36.0); MEAN CELL VOLUME 85.3 fl (80-96); MEAN PLT VOLUME 8.4 fl (7.5-11.1); PLATELET COUNT 231 K/MM3 (134-434); RBC 3.83 M/mm3 (3.60-5.2); RDW 13.3 % (11.6-15.6); WHITE BLOOD COUNT 12.9 K/mm3 (4.0-10.8)
[2019-05-06] MEDS: KCL 10 MEQ IVPB 10 MEQ/100 ML INFUS.BAG IVPB SCH ×4 (08:34→11:35)
[2019-05-06 08:45] LABS: BILIRUBIN,TOTAL 0.7 mg/dl (0.2-1); CALCIUM 7.8 mg/dl (8.5-10); CREATININE 0.6 mg/dl (0.55-1.3); POTASSIUM 3.2 mmol/L (3.5-5.1); TOT PROT 5.6 g/dl (6.4-8.2)
[2019-05-06] MEDS: CEFTRIAXONE 2 GM-D5W BAG 2 GM/50 ML BAG IVPB SCH (09:33)
[2019-05-06] MEDS: amLODIPine BESYLATE 2.5 MG TABLET (FP) PO SCH (09:34)
[2019-05-06] MEDS: HEPARIN NA (PORCINE) 5,000 UNITS/ML 1ML VIAL SQ SCH ×2 (09:34→21:52)
[2019-05-06] MEDS: FAMOTIDINE 20 MG/50 ML IVPB 20 MG/50 ML MG IVPB SCH ×2 (09:34→21:53)
--- NOTE | 2019-05-06 17:41 | PN ---
Progress Note, Physician Chief Complaint: abdominal pain History of Present Illness: 74 y/o woman with a PMHx of HTN, HLD, CAD s/p Cardiac Cath, Angina, DM. Who presents to the ED sent in by his PMD for admission for epigastric pain for the past 2 days. - Current Medication List Current Medications: Active Medications Acetaminophen (Tylenol Oral Solution -) 650 mg PO Q6H PRN PRN Reason: PAIN Acetaminophen (Ofirmev Injection -) 1,000 mg IVPB Q6H PRN PRN Reason: PAIN LEVEL 6-10 Last Admin: 05/06/19 02:36 Dose: 1,000 mg Amlodipine Besylate (Norvasc -) 2.5 mg PO DAILY [facility] Last Admin: 05/06/19 09:34 Dose: 2.5 mg Ascorbic Acid (Vitamin C -) 500 mg PO DAILY [facility] Atorvastatin Calcium (Lipitor -) 5 mg PO HS [facility] Last Admin: 05/05/19 21:15 Dose: 5 mg Heparin Sodium (Porcine) (Heparin -) 5,000 unit SQ BID [facility] Last Admin: 05/06/19 09:34 Dose: 5,000 unit Hyoscyamine Sulfate (Levsin -) 0.125 mg PO Q4H PRN PRN Reason: PAIN LEVEL 1 - 3 Last Admin: 05/06/19 00:24 Dose: 0.125 mg Sodium Chloride (Normal Saline -) 1,000 mls @ 75 mls/hr IV ASDIR [facility] Last Admin: 05/05/19 20:00 Dose: 75 mls/hr Metronidazole (Flagyl 500mg Premixed Ivpb -) 500 mg in 100 mls @ 100 mls/hr IVPB Q8H-IV [facility] Last Admin: 05/06/19 17:11 Dose: 100 mls/hr Famotidine/Sodium Chloride (Pepcid 20 Mg Premixed Ivpb -) 20 mg in 50 mls @ 100 mls/hr IVPB BID [facility] Last Admin: 05/06/19 09:34 Dose: 100 mls/hr Ceftriaxone Sodium (Ceftriaxone 2 Gm-D5w Bag) 2 gm in 50 mls @ 100 mls/hr IVPB DAILY [facility]; Protocol Last Admin: 05/06/19 09:33 Dose: 100 mls/hr Metoprolol Tartrate (Lopressor -) 50 mg PO HS [facility] Last Admin: 05/05/19 21:14 Dose: 50 mg Morphine Sulfate (Morphine Sulfate) 4 mg IVPUSH Q6H PRN PRN Reason: PAIN LEVEL 7 - 10 Last Admin: 05/05/19 02:14 Dose: 4 mg Morphine Sulfate (Morphine Sulfate) 4 mg IVPUSH Q4H PRN PRN Reason: PAIN LEVEL 7 - 10 Ondansetron HCl (Zofran Injection) 8 mg IVPB Q6H PRN PRN Reason: NAUSEA Last Admin: 05/06/19 13:10 Dose: 8 mg - Objective Vital Signs: Vital Signs Temperature 98.3 F 05/06/19 14:12 Pulse Rate 63 05/06/19 14:12 Respiratory Rate 83 H 05/06/19 14:12 Blood Pressure 126/59 L 05/06/19 14:12 O2 Sat by Pulse Oximetry (%) 100 05/06/19 14:12 Constitutional: Yes: Well Nourished, No Distress, Calm Eyes: Yes: WNL HENT: Yes: WNL Neck: Yes: WNL Cardiovascular: Yes: WNL Respiratory: Yes: WNL Gastrointestinal: Yes: Hypoactive Bowel Sounds, Tenderness Genitourinary: Yes: WNL Musculoskeletal: Yes: WNL Extremities: Yes: WNL Edema: No Peripheral Pulses WNL: Yes Integumentary: Yes: WNL ...Motor Strength: WNL Psychiatric: Yes: WNL Labs: CBC, BMP 05/06/19 07:46 05/06/19 07:46 Assessment/Plan 74 yo lady comes in with acute diverticulitis. ID eval appreciated. on IV ceftriaxone, PO flagyl. surgical eval requested. ID following -clear liquid diet well tolerated. now advanced to low residue. lunch was well tolerated. -gingival bleed: vitamin C added. -GI, DVT prophylaxis. -hyponatremia, hypokalemia: from reduced oral intake. replaced. improved. -HTN: on amlodipine. -type 2 DM: resumed oral meds. -OOB as tolerated -hopefully will DC home with 48 hours.
[2019-05-06] MEDS: SODIUM CHLORIDE 1,000 ML IV SCH (20:21)
[2019-05-06] MEDS: ATORVASTATIN CA 10 MG TABLET (FP) PO SCH (21:52)
[2019-05-06] MEDS: METOPROLOL TARTRATE 50 MG TABLET (FP) PO SCH (21:53)
[2019-05-07] MEDS ORDERED: PT OWN MED DRAWER 7, Y5N ONE (06:49)
[2019-05-07] MEDS: metFORMIN HCL 500 MG TABLET (FP) PO SCH ×2 (06:51→19:27)
[2019-05-07] MEDS: REPAGLINIDE 1 MG TABLET PO SCH ×2 (06:52→17:54)
[2019-05-07] MEDS: ONDANSETRON 4 MG/2 ML VIAL IVPB PRN ×2 (07:40→17:19)
[2019-05-07] MEDS: ACETAMINOPHEN 1000 MG/100 ML VIAL (NON FORMULARY) IVPB PRN ×2 (08:01→21:37)
[2019-05-07] MEDS: ASCORBIC ACID 500 MG TABLET (FP) PO SCH (09:17)
[2019-05-07] MEDS: CEFTRIAXONE 2 GM-D5W BAG 2 GM/50 ML BAG IVPB SCH (09:18)
[2019-05-07] MEDS: HEPARIN NA (PORCINE) 5,000 UNITS/ML 1ML VIAL SQ SCH ×2 (09:18→21:36)
[2019-05-07] MEDS: amLODIPine BESYLATE 2.5 MG TABLET (FP) PO SCH (09:18)
[2019-05-07] MEDS: FAMOTIDINE 20 MG/50 ML IVPB 20 MG/50 ML MG IVPB SCH ×2 (09:19→21:10)
--- NOTE | 2019-05-07 10:49 | PN ---
Progress Note, Physician Chief Complaint: abdominal pain History of Present Illness: 74 y/o woman with a PMHx of HTN, HLD, CAD s/p Cardiac Cath, Angina, DM. Who presents to the ED sent in by his PMD for admission for epigastric pain for the past 2 days. - Current Medication List Current Medications: Active Medications Acetaminophen (Tylenol Oral Solution -) 650 mg PO Q6H PRN PRN Reason: PAIN Acetaminophen (Ofirmev Injection -) 1,000 mg IVPB Q6H PRN PRN Reason: PAIN LEVEL 6-10 Last Admin: 05/07/19 08:01 Dose: 1,000 mg Amlodipine Besylate (Norvasc -) 2.5 mg PO DAILY [facility] Last Admin: 05/07/19 09:18 Dose: 2.5 mg Ascorbic Acid (Vitamin C -) 500 mg PO DAILY [facility] Last Admin: 05/07/19 09:17 Dose: 500 mg Atorvastatin Calcium (Lipitor -) 5 mg PO HS [facility] Last Admin: 05/06/19 21:52 Dose: 5 mg Heparin Sodium (Porcine) (Heparin -) 5,000 unit SQ BID [facility] Last Admin: 05/07/19 09:18 Dose: 5,000 unit Hyoscyamine Sulfate (Levsin -) 0.125 mg PO Q4H PRN PRN Reason: PAIN LEVEL 1 - 3 Last Admin: 05/06/19 00:24 Dose: 0.125 mg Sodium Chloride (Normal Saline -) 1,000 mls @ 75 mls/hr IV ASDIR [facility] Last Admin: 05/06/19 20:21 Dose: 75 mls/hr Metronidazole (Flagyl 500mg Premixed Ivpb -) 500 mg in 100 mls @ 100 mls/hr IVPB Q8H-IV [facility] Last Admin: 05/07/19 09:18 Dose: 100 mls/hr Famotidine/Sodium Chloride (Pepcid 20 Mg Premixed Ivpb -) 20 mg in 50 mls @ 100 mls/hr IVPB BID [facility] Last Admin: 05/07/19 09:19 Dose: 100 mls/hr Ceftriaxone Sodium (Ceftriaxone 2 Gm-D5w Bag) 2 gm in 50 mls @ 100 mls/hr IVPB DAILY [facility]; Protocol Last Admin: 05/07/19 09:18 Dose: 100 mls/hr Metformin HCl (Glucophage -) 1,000 mg PO BID@0700,1630 [facility] Last Admin: 05/07/19 06:51 Dose: 1,000 mg Metoprolol Tartrate (Lopressor -) 50 mg PO HS [facility] Last Admin: 05/06/19 21:53 Dose: 50 mg Morphine Sulfate (Morphine Sulfate) 4 mg IVPUSH Q6H PRN PRN Reason: PAIN LEVEL 7 - 10 Last Admin: 05/05/19 02:14 Dose: 4 mg Morphine Sulfate (Morphine Sulfate) 4 mg IVPUSH Q4H PRN PRN Reason: PAIN LEVEL 7 - 10 Ondansetron HCl (Zofran Injection) 8 mg IVPB Q6H PRN PRN Reason: NAUSEA Last Admin: 05/07/19 07:40 Dose: 8 mg Repaglinide (Prandin -) 1 mg PO BID@0700,1700 [facility] Last Admin: 05/07/19 06:52 Dose: 1 mg - Objective Vital Signs: Vital Signs Temperature 98.4 F 05/07/19 08:00 Pulse Rate 77 05/07/19 08:00 Respiratory Rate 18 05/07/19 08:00 Blood Pressure 129/65 05/07/19 08:00 O2 Sat by Pulse Oximetry (%) 98 05/07/19 02:00 Constitutional: Yes: Well Nourished, No Distress Eyes: Yes: WNL HENT: Yes: WNL Neck: Yes: WNL Cardiovascular: Yes: WNL Respiratory: Yes: WNL Gastrointestinal: Yes: WNL Genitourinary: Yes: WNL Musculoskeletal: Yes: Joint Stiffness Extremities: Yes: WNL Edema: No Peripheral Pulses WNL: Yes ...Motor Strength: WNL Psychiatric: Yes: WNL Labs: CBC, BMP 05/06/19 07:46 05/06/19 07:46 Assessment/Plan 74 yo lady comes in with acute diverticulitis. ID eval appreciated. on IV ceftriaxone, PO flagyl. - advanced to low residue. lunch was well tolerated. dinner last night and breakfast this morning well tolerated. still C/O abdominal pain. -gingival bleed: vitamin C added. -GI, DVT prophylaxis. -hyponatremia, hypokalemia: from reduced oral intake. replaced. AM labs ordered. -HTN: on amlodipine. -type 2 DM: resumed oral meds. -OOB as tolerated -will DC home once cleared by ID -assessment and plan discussed with pt and medical staff.
[2019-05-07] MEDS: SODIUM CHLORIDE 1,000 ML IV SCH (20:00)
[2019-05-07] MEDS: ATORVASTATIN CA 10 MG TABLET (FP) PO SCH (21:36)
[2019-05-07] MEDS: METOPROLOL TARTRATE 50 MG TABLET (FP) PO SCH (21:37)
[2019-05-08] MEDS: ONDANSETRON 4 MG/2 ML VIAL IVPB PRN ×2 (01:42→10:14)
--- NOTE | 2019-05-08 09:22 | PN ---
Progress Note, Physician History of Present Illness: COMPLAINS OF ABDOMINAL PAIN AND NAUSEA REPORTS NAUSEA AFTER HAVING CHICKEN SOAP YESTERDAY CONTINUED DIFFUSE CRAMPY ABDOMINAL PAINS, EPISODIC SHARP RUQ PAIN + NAUSEA DENIES VOMITING + SOFT BM TODAY NON BLOODY NO FEVER/ CHILLS TOLERATING CEPHALOSPORIN - Current Medication List Current Medications: Active Medications Acetaminophen (Tylenol Oral Solution -) 650 mg PO Q6H PRN PRN Reason: PAIN Acetaminophen (Ofirmev Injection -) 1,000 mg IVPB Q6H PRN PRN Reason: PAIN LEVEL 6-10 Last Admin: 05/07/19 21:37 Dose: 1,000 mg Amlodipine Besylate (Norvasc -) 2.5 mg PO DAILY [facility] Last Admin: 05/07/19 09:18 Dose: 2.5 mg Ascorbic Acid (Vitamin C -) 500 mg PO DAILY [facility] Last Admin: 05/07/19 09:17 Dose: 500 mg Atorvastatin Calcium (Lipitor -) 5 mg PO HS [facility] Last Admin: 05/07/19 21:36 Dose: 5 mg Heparin Sodium (Porcine) (Heparin -) 5,000 unit SQ BID [facility] Last Admin: 05/07/19 21:36 Dose: 5,000 unit Hyoscyamine Sulfate (Levsin -) 0.125 mg PO Q4H PRN PRN Reason: PAIN LEVEL 1 - 3 Last Admin: 05/06/19 00:24 Dose: 0.125 mg Sodium Chloride (Normal Saline -) 1,000 mls @ 75 mls/hr IV ASDIR [facility] Last Admin: 05/07/19 20:00 Dose: 75 mls/hr Metronidazole (Flagyl 500mg Premixed Ivpb -) 500 mg in 100 mls @ 100 mls/hr IVPB Q8H-IV [facility] Last Admin: 05/08/19 02:50 Dose: 100 mls/hr Famotidine/Sodium Chloride (Pepcid 20 Mg Premixed Ivpb -) 20 mg in 50 mls @ 100 mls/hr IVPB BID [facility] Last Admin: 05/07/19 21:10 Dose: 100 mls/hr Ceftriaxone Sodium (Ceftriaxone 2 Gm-D5w Bag) 2 gm in 50 mls @ 100 mls/hr IVPB DAILY [facility]; Protocol Last Admin: 05/07/19 09:18 Dose: 100 mls/hr Metformin HCl (Glucophage -) 1,000 mg PO BID@0700,1630 [facility] Last Admin: 05/07/19 19:27 Dose: Not Given Metoprolol Tartrate (Lopressor -) 50 mg PO HS [facility] Last Admin: 05/07/19 21:37 Dose: 50 mg Morphine Sulfate (Morphine Sulfate) 4 mg IVPUSH Q4H PRN PRN Reason: PAIN LEVEL 7 - 10 Ondansetron HCl (Zofran Injection) 8 mg IVPB Q6H PRN PRN Reason: NAUSEA Last Admin: 05/08/19 01:42 Dose: 8 mg Repaglinide (Prandin -) 1 mg PO BID@0700,1700 [facility] Last Admin: 05/07/19 17:54 Dose: 1 mg - Objective Vital Signs: Vital Signs Temperature 98.4 F 05/08/19 08:45 Pulse Rate 79 05/08/19 08:45 Respiratory Rate 18 05/08/19 08:45 Blood Pressure 131/71 05/08/19 08:45 O2 Sat by Pulse Oximetry (%) 98 05/08/19 07:54 Constitutional: Yes: No Distress Eyes: Yes: Conjunctiva Clear Cardiovascular: Yes: Regular Rate and Rhythm, S1, S2 Respiratory: Yes: CTA Bilaterally Gastrointestinal: Yes: Normal Bowel Sounds, Soft, Tenderness, Other (+ MILD DIFFUSE TENDERNESS TO PALP. NO RUQ TENDERNESS NO REBOUND / RIGIDITY) Edema: No Labs: CBC, BMP 05/06/19 07:46 05/06/19 07:46 Assessment/Plan ACUTE UNCOMPLICATED SIGMOID DIVERTICULITIS CONTINUED ABDOMINAL DISCOMFORT/ NAUSEA/ ANOREXIA CONTINUE CEFTRIAXONE/ FLAGYL GI FOLLOW UP
[2019-05-08] MEDS: metFORMIN HCL 500 MG TABLET (FP) PO SCH ×3 (09:24→16:33)
[2019-05-08] MEDS: FAMOTIDINE 20 MG/50 ML IVPB 20 MG/50 ML MG IVPB SCH ×2 (09:25→21:19)
[2019-05-08] MEDS: ASCORBIC ACID 500 MG TABLET (FP) PO SCH (09:25)
[2019-05-08] MEDS: CEFTRIAXONE 2 GM-D5W BAG 2 GM/50 ML BAG IVPB SCH (09:25)
[2019-05-08] MEDS: REPAGLINIDE 1 MG TABLET PO SCH ×2 (09:25→17:05)
[2019-05-08] MEDS: amLODIPine BESYLATE 2.5 MG TABLET (FP) PO SCH (09:25)
[2019-05-08] MEDS: HEPARIN NA (PORCINE) 5,000 UNITS/ML 1ML VIAL SQ SCH (09:26)
[2019-05-08 10:50] LABS: BASO % 0.2 % (0-2.0); EOS % 1.5 % (0-4.5); HEMATOCRIT 30.5 % (32.4-45.2); HEMOGLOBIN 9.9 GM/dl (10.7-15.3); LYMPH % 14.4 % (8-40); MCH 27.3 pg (25.7-33.7); MCHC 32.5 g/dl (32.0-36.0); MEAN CELL VOLUME 83.9 fl (80-96); MEAN PLT VOLUME 7.9 fl (7.5-11.1); MONO % 9.1 % (3.8-10.2); NEUT % 74.8 % (42.8-82.8); PLATELET COUNT 304 K/MM3 (134-434); RBC 3.63 M/mm3 (3.60-5.2); RDW 13.4 % (11.6-15.6); WHITE BLOOD COUNT 11.4 K/mm3 (4.0-10.8)
[2019-05-08 11:10] LABS: CREATININE 0.5 mg/dl (0.55-1.3); POTASSIUM 3.3 mmol/L (3.5-5.1)
[2019-05-08] MEDS ORDERED: POTASSIUM CHLORIDE TABS 20 MEQ TABLET.ER (FP) PO ONE (12:00)
--- NOTE | 2019-05-08 13:13 | PN ---
Progress Note (short form) - Note Progress Note: PULMONARY BLOATING AND TENDERNESS OF ABD CONTINUE VSS/AFEBRILE Constitutional: Yes: Anxious Eyes: Yes: EOM Intact HENT: Yes: Normocephalic Neck: Yes: Trachea Midline Cardiovascular: Yes: Regular Rate and Rhythm Respiratory: Yes: CTA Bilaterally Gastrointestinal: Yes: Hyperactive Bowel Sounds, Tenderness, Epigastrium. No: Tenderness, Rebound Renal/: Yes: WNL Breast(s): Yes: WNL Musculoskeletal: Yes: WNL Edema: No Neurological: Yes: Alert Labs: REVIEWED Problem List - Problems (1) Abdominal pain Code(s): R10.9 - UNSPECIFIED ABDOMINAL PAIN (2) Diverticulitis Code(s): K57.92 - DVTRCLI OF INTEST, PART UNSP, W/O PERF OR ABSCESS W/O BLEED (3) HTN (hypertension) Code(s): I10 - ESSENTIAL (PRIMARY) HYPERTENSION Assessment/Plan ACUTE SIGMOID DIVERTICULITIS REQUIRING IV FLUIDS/ABS O2 PRN DIET MODIFICATION WITH ADVANCEMENT TOLERATED PATIENT WANTS HEPARIN STOPPED WILL REQUEST B/L COMP NAKIA HILL MD Problem List - Problems (1) Abdominal pain Code(s): R10.9 - UNSPECIFIED ABDOMINAL PAIN (2) Diverticulitis Code(s): K57.92 - DVTRCLI OF INTEST, PART UNSP, W/O PERF OR ABSCESS W/O BLEED (3) HTN (hypertension) Code(s): I10 - ESSENTIAL (PRIMARY) HYPERTENSION
--- NOTE | 2019-05-08 15:13 | PN ---
Progress Note, Physician Chief Complaint: abdominal pain History of Present Illness: 74 y/o woman with a PMHx of HTN, HLD, CAD s/p Cardiac Cath, Angina, DM. Who presents to the ED sent in by his PMD for admission for epigastric pain for the past 2 days. - Current Medication List Current Medications: Active Medications Acetaminophen (Tylenol Oral Solution -) 650 mg PO Q6H PRN PRN Reason: PAIN Acetaminophen (Ofirmev Injection -) 1,000 mg IVPB Q6H PRN PRN Reason: PAIN LEVEL 6-10 Last Admin: 05/07/19 21:37 Dose: 1,000 mg Amlodipine Besylate (Norvasc -) 2.5 mg PO DAILY REPLACED BY [facility] Last Admin: 05/08/19 09:25 Dose: 2.5 mg Ascorbic Acid (Vitamin C -) 500 mg PO DAILY REPLACED BY [facility] Last Admin: 05/08/19 09:25 Dose: 500 mg Atorvastatin Calcium (Lipitor -) 5 mg PO HS REPLACED BY [facility] Last Admin: 05/07/19 21:36 Dose: 5 mg Hyoscyamine Sulfate (Levsin -) 0.125 mg PO Q4H PRN PRN Reason: PAIN LEVEL 1 - 3 Last Admin: 05/06/19 00:24 Dose: 0.125 mg Sodium Chloride (Normal Saline -) 1,000 mls @ 75 mls/hr IV ASDIR REPLACED BY [facility] Last Admin: 05/07/19 20:00 Dose: 75 mls/hr Metronidazole (Flagyl 500mg Premixed Ivpb -) 500 mg in 100 mls @ 100 mls/hr IVPB Q8H-IV REPLACED BY [facility] Last Admin: 05/08/19 09:25 Dose: 100 mls/hr Famotidine/Sodium Chloride (Pepcid 20 Mg Premixed Ivpb -) 20 mg in 50 mls @ 100 mls/hr IVPB BID REPLACED BY [facility] Last Admin: 05/08/19 09:25 Dose: 100 mls/hr Ceftriaxone Sodium (Ceftriaxone 2 Gm-D5w Bag) 2 gm in 50 mls @ 100 mls/hr IVPB DAILY REPLACED BY [facility]; Protocol Last Admin: 05/08/19 09:25 Dose: 100 mls/hr Metformin HCl (Glucophage -) 1,000 mg PO BID@0700,1630 REPLACED BY [facility] Last Admin: 05/08/19 09:45 Dose: 1,000 mg Metoprolol Tartrate (Lopressor -) 50 mg PO HS REPLACED BY [facility] Last Admin: 05/07/19 21:37 Dose: 50 mg Ondansetron HCl (Zofran Injection) 8 mg IVPB Q6H PRN PRN Reason: NAUSEA Last Admin: 05/08/19 10:14 Dose: 8 mg Repaglinide (Prandin -) 1 mg PO BID@0700,1700 REPLACED BY [facility] Last Admin: 05/08/19 09:25 Dose: Not Given - Objective Vital Signs: Vital Signs Temperature 98.6 F 05/08/19 14:00 Pulse Rate 82 05/08/19 14:00 Respiratory Rate 18 05/08/19 14:00 Blood Pressure 147/71 05/08/19 14:00 O2 Sat by Pulse Oximetry (%) 96 05/08/19 14:00 Constitutional: Yes: Well Nourished, No Distress Eyes: Yes: WNL HENT: Yes: WNL Neck: Yes: WNL Cardiovascular: Yes: WNL Respiratory: Yes: WNL Gastrointestinal: Yes: Tenderness Genitourinary: Yes: WNL Musculoskeletal: Yes: WNL Extremities: Yes: WNL Edema: No Peripheral Pulses WNL: No Integumentary: Yes: WNL ...Motor Strength: WNL Psychiatric: Yes: WNL Labs: CBC, BMP 05/08/19 09:50 05/08/19 09:50 Assessment/Plan 74 yo lady comes in with acute diverticulitis. ID eval appreciated. on IV ceftriaxone, PO flagyl. to continue for now as per ID - advanced to low residue. lunch was well tolerated. dinner last night and breakfast this morning well tolerated. still C/O some abdominal discomfort. -gingival bleed: vitamin C added. -GI, DVT prophylaxis. -hyponatremia, hypokalemia: from reduced oral intake. replaced. imprvoing. hypokalmeia supplemented today -HTN: on amlodipine. -type 2 DM: resumed oral meds. -OOB as tolerated -will DC home once cleared by ID -assessment and plan discussed with pt and medical staff.
[2019-05-08] MEDS ORDERED: PT OWN MED DRAWER 7, Y5N ONE (17:01)
--- NOTE | 2019-05-08 19:20 | PN ---
Progress Note (short form) - Note Progress Note: (Dr. Franklin - covering for Dr. Reyes) Patient remains on IV antibiotics for sigmoid diverticulitis; remains afebrile with leukocytosis slowly improving. Has abdominal bloating and some pain but feels better than yesterday. Tolerating soft diet with some bloating/feeling of fullness. Having small BMs today. Afebrile VSS Abdomen slightly distended +BS nonspecific discomfort to palpation in mid abdomen; no rebound or guarding Imp: slowly resolving diverticulits bowel function also gradually improving still with some abdominal tenderness and bloating Rec: continue antibiotics (switch from IV to PO in 1-2 days if continues to improve - await ID opinion) soft diet (or liquids) until abdominal symptoms further improved; then keep on low residue diet for another 2-3 weeks plans for GI followup/colonoscopy in 2-[address] Reyes
[2019-05-08] MEDS: ATORVASTATIN CA 10 MG TABLET (FP) PO SCH (21:19)
[2019-05-08] MEDS: METOPROLOL TARTRATE 50 MG TABLET (FP) PO SCH (21:19)
[2019-05-09] MEDS ORDERED: PT OWN MED DRAWER 7, Y5N ONE (05:41)
[2019-05-09] MEDS: REPAGLINIDE 1 MG TABLET PO SCH (06:00)
[2019-05-09] MEDS: metFORMIN HCL 500 MG TABLET (FP) PO SCH (06:00)
[2019-05-09] MEDS: CEFTRIAXONE 2 GM-D5W BAG 2 GM/50 ML BAG IVPB SCH (09:24)
[2019-05-09] MEDS: amLODIPine BESYLATE 2.5 MG TABLET (FP) PO SCH (09:24)
[2019-05-09] MEDS: ASCORBIC ACID 500 MG TABLET (FP) PO SCH (09:25)
[2019-05-09] MEDS: FAMOTIDINE 20 MG/50 ML IVPB 20 MG/50 ML MG IVPB SCH (09:25)
--- NOTE | 2019-05-09 10:28 | PN ---
Progress Note, Physician Chief Complaint: abdominal pain History of Present Illness: 74 y/o woman with a PMHx of HTN, HLD, CAD s/p Cardiac Cath, Angina, DM. Who presents to the ED sent in by his PMD for admission for epigastric pain for the past 2 days. - Current Medication List Current Medications: Active Medications Acetaminophen (Tylenol Oral Solution -) 650 mg PO Q6H PRN PRN Reason: PAIN Acetaminophen (Ofirmev Injection -) 1,000 mg IVPB Q6H PRN PRN Reason: PAIN LEVEL 6-10 Last Admin: 05/07/19 21:37 Dose: 1,000 mg Amlodipine Besylate (Norvasc -) 2.5 mg PO DAILY [facility] Last Admin: 05/09/19 09:24 Dose: 2.5 mg Ascorbic Acid (Vitamin C -) 500 mg PO DAILY [facility] Last Admin: 05/09/19 09:25 Dose: 500 mg Atorvastatin Calcium (Lipitor -) 5 mg PO HS [facility] Last Admin: 05/08/19 21:19 Dose: 5 mg Hyoscyamine Sulfate (Levsin -) 0.125 mg PO Q4H PRN PRN Reason: PAIN LEVEL 1 - 3 Last Admin: 05/06/19 00:24 Dose: 0.125 mg Sodium Chloride (Normal Saline -) 1,000 mls @ 75 mls/hr IV ASDIR [facility] Last Admin: 05/07/19 20:00 Dose: 75 mls/hr Metronidazole (Flagyl 500mg Premixed Ivpb -) 500 mg in 100 mls @ 100 mls/hr IVPB Q8H-IV [facility] Last Admin: 05/09/19 09:24 Dose: 100 mls/hr Famotidine/Sodium Chloride (Pepcid 20 Mg Premixed Ivpb -) 20 mg in 50 mls @ 100 mls/hr IVPB BID [facility] Last Admin: 05/09/19 09:25 Dose: 100 mls/hr Ceftriaxone Sodium (Ceftriaxone 2 Gm-D5w Bag) 2 gm in 50 mls @ 100 mls/hr IVPB DAILY [facility]; Protocol Last Admin: 05/09/19 09:24 Dose: 100 mls/hr Metformin HCl (Glucophage -) 1,000 mg PO BID@0700,1630 [facility] Last Admin: 05/09/19 06:00 Dose: 1,000 mg Metoprolol Tartrate (Lopressor -) 50 mg PO HS [facility] Last Admin: 05/08/19 21:19 Dose: 50 mg Ondansetron HCl (Zofran Injection) 8 mg IVPB Q6H PRN PRN Reason: NAUSEA Last Admin: 05/08/19 10:14 Dose: 8 mg Repaglinide (Prandin -) 1 mg PO BID@0700,1700 [facility] Last Admin: 05/09/19 06:00 Dose: 1 mg - Objective Vital Signs: Vital Signs Temperature 98.4 F 05/09/19 04:00 Pulse Rate 75 05/09/19 04:00 Respiratory Rate 05/09/19 04:00 Blood Pressure 122/64 05/09/19 04:00 O2 Sat by Pulse Oximetry (%) 97 05/09/19 04:00 Constitutional: Yes: Well Nourished Eyes: Yes: WNL HENT: Yes: WNL Neck: Yes: WNL Cardiovascular: Yes: WNL Respiratory: Yes: WNL Gastrointestinal: Yes: WNL ...Rectal Exam: Yes: WNL Genitourinary: Yes: WNL Peripheral Pulses WNL: No Integumentary: Yes: WNL Neurological: Yes: WNL ...Motor Strength: WNL Psychiatric: Yes: WNL Labs: CBC, BMP 05/08/19 09:50 05/08/19 09:50 Assessment/Plan 74 yo lady comes in with acute diverticulitis. ID eval appreciated. on IV ceftriaxone, PO flagyl. - advanced to low residue. lunch was well tolerated. dinner last night and breakfast this morning well tolerated. still C/O some abdominal discomfort. -gingival bleed: vitamin C added. -GI, DVT prophylaxis. -hyponatremia, hypokalemia: from reduced oral intake. supplemented. -HTN: on amlodipine. -type 2 DM: resumed oral meds. -OOB as tolerated -will DC home once cleared by ID -assessment and plan discussed with pt and medical staff. Pt would like to go home today. Oral diet well tolerated.
--- NOTE | 2019-05-09 11:49 | DS ---
Physical Examination Vital Signs: Vital Signs Temperature 98.4 F 05/09/19 04:00 Pulse Rate 75 05/09/19 04:00 Respiratory Rate 19 05/09/19 04:00 Blood Pressure 122/64 05/09/19 04:00 O2 Sat by Pulse Oximetry (%) 97 05/09/19 04:00 Constitutional: Yes: Well Nourished Eyes: Yes: WNL HENT: Yes: WNL Cardiovascular: Yes: WNL Respiratory: Yes: WNL Gastrointestinal: Yes: WNL Renal/: Yes: WNL Musculoskeletal: Yes: WNL Extremities: Yes: WNL Edema: No Peripheral Pulses WNL: Yes Integumentary: Yes: WNL Neurological: Yes: WNL ...Motor Strength: WNL Psychiatric: Yes: WNL Labs: CBC, BMP 05/08/19 09:50 05/08/19 09:50 Discharge Summary Reason For Visit: DIVERTICULITIS Current Active Problems Abdominal pain (Acute) CAD (coronary artery disease) (Acute) Diverticulitis (Acute) HLD (hyperlipidemia) (Acute) HTN (hypertension) (Acute) Condition: Stable - Instructions Disposition: HOME - Home Medications Comprehensive Discharge Medication List: Ambulatory Orders metFORMIN HCL [Glucophage -] 1,000 mg PO BID 09/05/13 Repaglinide [Prandin] 1 mg PO TID 07/05/16 Esomeprazole Magnesium [Nexium 24Hr] 40 mg PO DAILY 11/02/17 Metoprolol Tartrate 50 mg PO HS 11/02/17 Amlodipine Besylate 2.5 mg PO DAILY 04/30/19 Atorvastatin Ca [Lipitor] 5 mg PO HS 04/30/19 Cefuroxime Axetil [Ceftin -] 500 mg PO Q12H #20 tablet 05/03/19 metroNIDAZOLE [Flagyl -] 500 mg PO TID #30 tablet 05/03/19
[2019-05-09 14:24] VITALS: BP 130/78; PULSE 78; TEMP 97.7
== END 2019-05-09 14:00 | disposition home or self-care (01) | DRG 392 ==
LOC: FER 17:31 → FM/S 18:52 → UNDOADMIN 19:25 → FM/S 20:27
PROVIDERS: ADMIT Specialist; ATTEND Internal Medicine
DX: K57.32 Diverticulitis of large intestine without perforation or abscess without bleeding (principal); E87.1 Hypo-osmolality and hyponatremia; E87.6 Hypokalemia; E11.9 Type 2 diabetes mellitus without complications; I10 Essential (primary) hypertension; E78.5 Hyperlipidemia, unspecified; K21.9 Gastro-esophageal reflux disease without esophagitis; Z88.0 Allergy status to penicillin; I25.10 Atherosclerotic heart disease of native coronary artery without angina pectoris
CPT/HCPCS: 36415; 71045-TC-FY; 74176-TC; 80048; 80053; 82150; 82272; 82962; 83605; 83690; 84484; 85025; 85027; 87040; 93005; 96361; 96365; 96368; 96375; 99282-25; 99283-25; J0131; J1644; J7030

== ENCOUNTER 2019-11-19 12:05 | Inpatient (IN) | payer OTHER, BC ==
--- NOTE | 2019-11-19 12:29 | PDOC ---
History of Present Illness - General Chief Complaint: Pain Stated Complaint: ABD PAIN/ CHILLS/ NAUSEOUS Time Seen by Provider: 11/19/19 12:27 History Source: Patient Exam Limitations: No Limitations - History of Present Illness Initial Comments: 11/19/19 12:29 PCP: Zelda Mauricio HPI: 74yo F with past medical history of diverticulitis (06/2019), gastroporesis , uterine prolapse, diabetes (Metformin), hypertension, hyperlipidemia and GERD who presents to the emergency department with 2 days of LLQ abdominal pain. Pain is cramping in nature, associated with chills, subjective fevers, bloating , nausea, and mild headache, and feels similar to her prior diverticulitis pain. Worse pain when bearing down for BMs, multiple small volume BMs over this same period without constipation (on bowel regimen), blood, or dark stools - endorses straining. Some relief this AM after a large volume BM. Tolerating PO ( tea and toast) with reduced appetite. Only difference between prior episode of diverticulitis and today's presentation is worse rectal pain with BMs. Prior abdominal surgeries include hysterectomy, hosea. Denies Hx of fissures / hemorrhoids. Patient has iodine and shellfish allergies, does not know if she has had IV contrast before. Per chart, previous 2 CTs were done non-contrast. Denies chest pain, difficulty breathing, vomiting, incontinence, sensory deficits, weakness, or recent illness. All: Levofloxain, Iodine, PCNs, Sulfa, Tetracycline Meds: Per chart PMH: As above PSH: Hysterectomy, Cholecystectomy, Breast Augmentation Past History - Travel Traveled outside of the country in the last 30 days: No Close contact w/someone who was outside of country & ill: No - Past Medical History Allergies/Adverse Reactions: Allergies Allergy/AdvReac Type Severity Reaction Status Date / Time levofloxacin [From Levaquin] Allergy Severe Cough Verified 11/19/19 13:20 iodine [Iodine] Allergy Intermediate Rash Verified 11/19/19 13:20 Penicillins Allergy Intermediate Swelling Verified 11/19/19 13:20 shellfish derived Allergy Intermediate Rash Verified 11/19/19 13:20 Sulfa (Sulfonamide Allergy Intermediate Rash Verified 11/19/19 13:20 Antibiotics) [Sulfa(Sulfonamide Antibiotics)] tetracycline [Tetracycline] Allergy Intermediate Rash Verified 11/19/19 13:20 seasonal Allergy Uncoded 11/19/19 13:20 Home Medications: Ambulatory Orders metFORMIN HCL [Glucophage -] 1,000 mg PO BID 09/05/13 Esomeprazole Magnesium [Nexium 24Hr] 40 mg PO DAILY 11/02/17 Metoprolol Tartrate 50 mg PO HS 11/02/17 Amlodipine Besylate 2.5 mg PO DAILY 04/30/19 Atorvastatin Ca [Lipitor] 5 mg PO HS 04/30/19 Ascorbic Acid [Vitamin C -] 500 mg PO DAILY tablet 05/09/19 Cefuroxime Axetil [Ceftin -] 500 mg PO Q12H 10 Days #20 tablet 05/09/19 Repaglinide [Prandin -] 1 mg PO BID@0700,1700 tablet 05/09/19 metFORMIN HCL [Glucophage -] 1,000 mg PO BID@0700,1630 tablet 05/09/19 metroNIDAZOLE [Flagyl -] 500 mg PO TID 10 Days #30 tablet 05/09/19 Anemia: No Asthma: No Cancer: No Cardiac Disorders: Yes (hx of angina) CVA: No COPD: No CHF: No DVT: No Dementia: No Diabetes: Yes GI Disorders: Yes (GASTROPARESIS,COLON POLYPS, DIVERTICULOSIS, GERD) Disorders: No HTN: Yes Hypercholesterolemia: Yes Liver Disease: No Seizures: No Thyroid Disease: No - Surgical History Abdominal Surgery: Yes Appendectomy: No Cardiac Surgery: Yes (CARDIAC CATH, NO STENTS) Cholecystectomy: Yes Lung Surgery: No Neurologic Surgery: No Orthopedic Surgery: Yes (R wrist sx) - Psycho Social/Smoking Cessation Hx Smoking Status: No Smoking History: Never smoked Have you smoked in the past 12 months: No Number of Cigarettes Smoked Daily: 0 Hx Alcohol Use: No Drug/Substance Use Hx: No Substance Use Type: None Hx Substance Use Treatment: No Review of Systems - Review of Systems Able to Perform ROS?: Yes Is the patient limited Czech proficient: Yes Constitutional: Yes: Chills, Fever (sunjective). No: Diaphoresis, Weakness HEENTM: No: Recent change in vision, Nose Congestion, Throat Pain Respiratory: No: Cough, Shortness of Breath Cardiac (ROS): No: Chest Pain, Irregular Heart Rate, Palpitations, Syncope, Chest Tightness ABD/GI: Yes: Abd. Pain w/ defecation, Diarrhea, Nausea. No: Abdominal Distended , Constipated, Poor Appetite, Poor Fluid Intake, Rectal Bleeding, Vomiting, Tarry Stools : Yes: Other ("difficulty pushing urine out"). No: Burning, Dysuria, Frequency, Incontinence Musculoskeletal: No: Back Pain, Muscle Pain, Muscle Weakness Integumentary: No: Bruising, Flushing, Pallor Neurological: Yes: Headache (mild, associated with abdominal pain). No: Numbness, Tingling, Weakness Psychiatric: Yes: Change in Appetite (reduced appetite). No: Stressors Endocrine: No: Increased Thirst, Increased Urine, Change in Weight Hematologic/Lymphatic: No: Anemia, Blood Clots, Easy Bleeding All Other Systems: Reviewed and Negative *Physical Exam - Vital Signs Last Vital Signs Temp Pulse Resp BP Pulse Ox 97.9 F 85 18 137/67 100 11/19/19 12:08 11/19/19 12:08 11/19/19 12:08 11/19/19 12:08 11/19/19 12:08 - Physical Exam 11/19/19 13:22 Vitals reviewed, AFVSS GEN: Well appearing, appears stated age, NAD, comfortable. AAOx3. HEENT: NCAT, EOMI, PERRL. Sclera anicteric, noninjected. No facial asymmetry. Moist mucous membranes. Normal voice. Trachea midline. CV: RRR, S1/S2, no murmurs / rubs / gallops appreciated. LUNG: CTAB, normal work of breathing. No wheezes, rales, rhonchi. No cough. Speaking full sentences. GI: Soft, +Tender LLQ, non-distended, +BS, no guarding, no rebound. No masses. EXTREMITIES: 2+ distal pulses. No LE edema. No obvious deformities of all extremities. SKIN: Warm, dry, no rashes appreciated, non-jaundiced. PSYCH: Normal mood and affect. Cooperative and appropriate. NEURO: CN grossly intact. Moving all extremities well. Normal strength and sensation grossly. RECTAL: No fissures, normal tone, no internal masses, internal tenderness, brown stool in vault. ED Treatment Course - LABORATORY CBC & Chemistry Diagram: 11/19/19 12:56 11/19/19 12:56 Medical Decision Making - Medical Decision Making 11/19/19 13:07 74yo F with past medical history of diverticulitis (06/2019), gastroporesis, uterine prolapse, diabetes (Metformin), hypertension, hyperlipidemia and GERD who presents to the emergency department with 2 days of LLQ abdominal pain. History notable for prolapse, diverticulitis, straining. Exam with stable vitals , LLQ tenderness, no fissure/rectal prolapse - some internal tenderness with normal brown stool. DDX: Most likely diverticulitis, also considering prolapse pain, UTI, constipation, colitis, unlikely [employer] [facility] pathology. - CBC, CMP, Lipase, Lactate, T&S, Coags - UA, UCx - CTAP without contrast (iodine / shellfish allergy) - 1L IVF bolus - 1g Ofirmev - Zofran 11/19/19 14:17 - Leukocytosis (14.6), Lactate (2.3) - Na 129 - Additional 1L IVF ordered - Flagyl, Rocephin - patient has tolerated previously - UA Negative 11/19/19 15:03 - Repeat BMP, Lactate Dispo: Admit Med/Surg Discharge - Discharge Information Problems reviewed: Yes Clinical Impression/Diagnosis: Diverticulitis, Elevated lactic acid level, Hyponatremia Condition: Guarded - Admission Yes - Follow up/Referral Referrals: Marlon Holman MD [Primary Care Provider] - Awais Mauricio MD [Staff Physician] - - Patient Discharge Instructions Additional Instructions: You were seen and evaluated in the [facility] for abdominal pain. - Post Discharge Activity
[2019-11-19] MEDS ORDERED: SODIUM CHLORIDE 0.9% 500 ML INFUS.BAG IV ONE (12:58)
[2019-11-19] MEDS ORDERED: ACETAMINOPHEN 1000 MG/100 ML VIAL (NON FORMULARY) IVPB ONE ×2 (12:58→21:32)
[2019-11-19] MEDS ORDERED: ONDANSETRON 4 MG/2 ML VIAL IVPUSH ONE (12:58)
--- NOTE | 2019-11-19 13:01 | PDOC ---
Documentation entered by Hayden Reagan SCRIBE, acting as scribe for Rosamaria Nava MD. Rosamaria Nava MD: This documentation has been prepared by the Tez chapa Daniel, SCRIBE, under my direction and personally reviewed by me in its entirety. I confirm that the documentation accurately reflects all work, treatment, procedures, and medical decision making performed by me. Attending Attestation - Resident Resident Name: Sincere Conti - ED Attending Attestation I have performed the following: I have examined & evaluated the patient, The case was reviewed & discussed with the resident, I agree w/resident's findings & plan, Exceptions are as noted - HPI HPI: 11/19/19 13:11 The patient is a 74 year old female with a past medical history of HTN, HLD, gastroparesis, uterine prolapse, diabetes, recent diverticulitis, and GERD here today for evaluation of abdominal pain. The patient reports that she has had left lower quadrant since last night and has had small hard bowel movements since last night with rectal pain. She also notes mild nausea without vomiting, headache, chills, subjective fevers, and bloating, and states that her pain feels similar to her last episode of diverticulitis. Patient denies lightheadedness. Denies fever, chills. Denies chest pain, shortness of breath. Denies vomiting, diarrhea. Allergies: levofloxacin, iodine, shellfish derived, penicillins, sulfa, tetracycline, seasonal allergy PCP: Marlon Holman GI: Awais Evangelista - Physicial Exam PE: 11/19/19 12:57 awake alert lungs clear bilat heart rrrno mrg abd soft llq ttp no rebound no guarding . no cva tenderness. - Medical Decision Making 11/19/19 12:58 74 yo F h/o htn hld DM recent diverticulitis 6 mo ago, here with c/o llq pain. pain with bowel movement and hard small stools. last stool this am. mild nausea. no vomiting. no f/c last treated for diverticulitis in august 26. dr. evangelista is her GI, pcp is differential uti, diverticulitis pyelo, plan ct a/p wo contrast. ( pt h/o iodin, shellfish, mult allergies) pain control , antiemetics, ivf. pain control as needed. will start with tylenol. 11/19/19 13:58 11/19/19 15:00 pt with uncomplicated diverticulitits on ct a/p however noted be hyponatremic 129, given 2 L NS. wbc 14.2 will repeat bmp. due to allergy to floroquinolones, pcn given ceftriaxone and flagyl. dr draper paged for dr sahu at 2:30pm awaiting callback.
[2019-11-19] MEDS ORDERED: ONDANSETRON 4 MG/2 ML VIAL ONE (13:10)
[2019-11-19] MEDS ORDERED: ACETAMINOPHEN INJECTION 100 ML IVPB ONE (13:10)
[2019-11-19 13:32] LABS: BASO % 0.2 % (0-2.0); EOS % 0.1 % (0-4.5); HEMATOCRIT 35.5 % (32.4-45.2); HEMOGLOBIN 11.4 GM/dL (10.7-15.3); LYMPH % 12.8 % (8-40); MCH 26.9 pg (25.7-33.7); MCHC 32.2 g/dl (32.0-36.0); MEAN CELL VOLUME 83.4 fl (80-96); MEAN PLT VOLUME 8.7 fl (7.5-11.1); MONO % 10.6 % (3.8-10.2); NEUT % 76.3 % (42.8-82.8); PLATELET COUNT 243 K/MM3 (134-434); RBC 4.26 M/mm3 (3.60-5.2); RDW 15.1 % (11.6-15.6); WHITE BLOOD COUNT 14.6 K/mm3 (4.0-10.0)
[2019-11-19 13:45] LABS: INR 1.04 (0.83-1.09); PROTHROMBIN TIME (PATIENT) 12.3 SEC (9.7-13.0)
[2019-11-19 13:52] LABS: ALBUMIN 3.6 g/dl (3.4-5.0); BILIRUBIN,TOTAL 0.6 mg/dL (0.2-1); BLOOD UREA NITROGEN 12.5 mg/dL (7-18); CALCIUM 8.9 mg/dL (8.5-10.1); CREATININE 0.8 mg/dL (0.55-1.3); POTASSIUM 3.7 mmol/L (3.5-5.1); TOT PROT 6.5 g/dl (6.4-8.2)
[2019-11-19] MEDS ORDERED: SODIUM CHLORIDE 0.9% 1000 ML INFUS.BAG IV ONE (14:00)
[2019-11-19 14:02] LABS: URINE APPEARANCE CLEAR; URINE BILIRUBIN NEGATIVE (NEGATIVE); URINE COLOR YELLOW; URINE GLUCOSE (UA) 2+ (NEGATIVE); URINE KETONE NEGATIVE (NEGATIVE); URINE LEUK ESTERASE NEGATIVE (NEGATIVE); URINE NITRITE NEGATIVE (NEGATIVE); URINE PROTEIN NEGATIVE (NEGATIVE); URINE UROBILINOGEN 0.2 mg/dL (0.2-1.0)
[2019-11-19] MEDS ORDERED: CEFTRIAXONE 1 GM in DEXTROSE 5%-WATER - 100 ML IVPB ONE (14:16)
[2019-11-19] MEDS ORDERED: CEFTRIAXONE 1 GM/50 ML BAG ONE (14:21)
[2019-11-19 15:43] LABS: BLOOD UREA NITROGEN 9.4 mg/dL (7-18); CALCIUM 8.1 mg/dL (8.5-10.1); CREATININE 0.6 mg/dL (0.55-1.3); POTASSIUM 3.4 mmol/L (3.5-5.1)
[2019-11-19 16:28] VITALS: BMI 27.4
[2019-11-19] MEDS ORDERED: ONDANSETRON 4 MG/2 ML VIAL IVPUSH PRN (17:25)
[2019-11-19] MEDS: LACTATED RINGERS SOLUTION 1,000 ML IV SCH (18:07)
[2019-11-19] MEDS: METOPROLOL TARTRATE 50 MG TABLET (FP) PO SCH ×2 (22:11→22:38)
[2019-11-19] MEDS: HEPARIN NA (PORCINE) 5,000 UNITS/ML 1ML VIAL SQ SCH (22:12)
[2019-11-19] MEDS: INSULIN SLIDING SCALE (NOVOLOG) 1 VIAL SQ SCH (22:26)
[2019-11-20] MEDS: INSULIN SLIDING SCALE (NOVOLOG) 1 VIAL SQ SCH ×2 (06:58→11:10)
[2019-11-20 08:23] LABS: BASO % 0.3 % (0-2.0); EOS % 0.9 % (0-4.5); HEMATOCRIT 30.2 % (32.4-45.2); HEMOGLOBIN 10.2 GM/dL (10.7-15.3); LYMPH % 20.5 % (8-40); MCHC 33.9 g/dl (32.0-36.0); MEAN CELL VOLUME 82.7 fl (80-96); MEAN PLT VOLUME 8.3 fl (7.5-11.1); MONO % 8.3 % (3.8-10.2); PLATELET COUNT 200 K/MM3 (134-434); RBC 3.65 M/mm3 (3.60-5.2); RDW 15.3 % (11.6-15.6)
[2019-11-20] MEDS ORDERED: cefTRIAXone SODIUM 1 GM VIAL ONE (08:46)
[2019-11-20] MEDS ORDERED: DEXTROSE 5%-WATER - 50 ML IVPB ONE (08:46)
[2019-11-20 08:51] LABS: INR 1.18 (0.83-1.09)
[2019-11-20 08:58] LABS: BILIRUBIN,TOTAL 0.5 mg/dL (0.2-1); BLOOD UREA NITROGEN 8.1 mg/dL (7-18); CALCIUM 8.2 mg/dL (8.5-10.1); CREATININE 0.6 mg/dL (0.55-1.3); POTASSIUM 3.6 mmol/L (3.5-5.1); TOT PROT 5.3 g/dl (6.4-8.2)
--- NOTE | 2019-11-20 08:59 | HP ---
Admitting History and Physical - Admission History of Present Illness: 74 y/o woman with a PMHx of HTN, HLD, CAD s/p Cardiac Cath, Angina, DM. Who presents to the ED with Lower Abdominal pain for 2 days - Past Medical History Cardiovascular: Yes: CAD, HTN, Hyperlipdemia Gastrointestinal: Yes: Diverticulitis, GERD, Hiatal Hernia (GASTROPARESIS, VISCERAL NEUROPATHY), Other ...: No Heme/Onc: Yes: Anemia Endocrine: Yes: Diabetes Mellitus - Past Surgical History Past Surgical History: Yes: Hysterectomy - Advance Directives Advance Directives: Yes: Living Will, Health Care Proxy - Smoking History Smoking history: Never smoked Have you smoked in the past 12 months: No Aproximately how many cigarettes per day: 0 - Alcohol/Substance Use Hx Alcohol Use: No History of Substance Use: reports: None - Social History ADL: Independent Occupation: Retired History of Recent Travel: No Home Medications - Allergies Allergies/Adverse Reactions: Allergies Allergy/AdvReac Type Severity Reaction Status Date / Time levofloxacin [From Levaquin] Allergy Severe Cough Verified 11/19/19 13:20 iodine [Iodine] Allergy Intermediate Rash Verified 11/19/19 13:20 Penicillins Allergy Intermediate Swelling Verified 11/19/19 13:20 shellfish derived Allergy Intermediate Rash Verified 11/19/19 13:20 Sulfa (Sulfonamide Allergy Intermediate Rash Verified 11/19/19 13:20 Antibiotics) [Sulfa(Sulfonamide Antibiotics)] tetracycline [Tetracycline] Allergy Intermediate Rash Verified 11/19/19 13:20 seasonal Allergy Uncoded 11/19/19 13:20 - Home Medications Home Medications: Ambulatory Orders metFORMIN HCL [Glucophage -] 1,000 mg PO BID 09/05/13 Esomeprazole Magnesium [Nexium 24Hr] 40 mg PO DAILY 11/02/17 Metoprolol Tartrate 50 mg PO HS 11/02/17 Amlodipine Besylate 2.5 mg PO DAILY 04/30/19 Atorvastatin Ca [Lipitor] 5 mg PO HS 04/30/19 Ascorbic Acid [Vitamin C -] 500 mg PO DAILY tablet 05/09/19 Cefuroxime Axetil [Ceftin -] 500 mg PO Q12H 10 Days #20 tablet 05/09/19 Repaglinide [Prandin -] 1 mg PO BID@0700,1700 tablet 05/09/19 metFORMIN HCL [Glucophage -] 1,000 mg PO BID@0700,1630 tablet 05/09/19 metroNIDAZOLE [Flagyl -] 500 mg PO TID 10 Days #30 tablet 05/09/19 Review of Systems - Review of Systems Cardiovascular: reports: No Symptoms Respiratory: reports: No Symptoms Gastrointestinal: reports: Abdominal Pain, Diarrhea. denies: Constipation Genitourinary: reports: No Symptoms Musculoskeletal: reports: No Symptoms Physical Examination Vital Signs: Vital Signs Temperature 98.3 F 11/19/19 22:00 Pulse Rate 80 11/19/19 22:00 Respiratory Rate 17 11/19/19 22:00 Blood Pressure 133/63 11/19/19 22:00 O2 Sat by Pulse Oximetry (%) 95 11/19/19 21:00 Cardiovascular: Yes: Regular Rate and Rhythm Respiratory: Yes: Regular, CTA Bilaterally Gastrointestinal: Yes: Normal Bowel Sounds, Soft, Tenderness (llq) Labs: CBC, BMP 11/20/19 07:50 11/20/19 07:50 Imaging - Results Cat Scan: Report Reviewed Problem List - Problems (1) Diverticulitis Assessment/Plan: 2ND EPISODE-1ST IN 04/2019 IV ABX NPO GI AND SURGICAL CONSULTS IVF Code(s): K57.92 - DVTRCLI OF INTEST, PART UNSP, W/O PERF OR ABSCESS W/O BLEED (2) CAD (coronary artery disease) Code(s): I25.10 - ATHSCL HEART DISEASE OF [place] CORONARY ARTERY W/O ANG PCTRS (3) Diabetes 1.5, managed as type 2 Assessment/Plan: BGM HOLD ORAL MEDS Code(s): E13.9 - OTHER SPECIFIED DIABETES MELLITUS WITHOUT COMPLICATIONS (4) HTN (hypertension) Assessment/Plan: MONITOR ON CURRENT MEDS Code(s): I10 - ESSENTIAL (PRIMARY) HYPERTENSION
[2019-11-20] MEDS: amLODIPine BESYLATE 2.5 MG TABLET (FP) PO SCH (09:15)
[2019-11-20] MEDS: PANTOPRAZOLE 40 MG TABLET PO SCH (09:15)
[2019-11-20] MEDS: HEPARIN NA (PORCINE) 5,000 UNITS/ML 1ML VIAL SQ SCH ×2 (09:16→21:48)
--- NOTE | 2019-11-20 09:41 | EKG ---
Test Reason : Blood Pressure : / mmHG Vent. Rate : 066 BPM Atrial Rate : 066 BPM P-R Int : 156 ms QRS Dur : 088 ms QT Int : 416 ms P-R-T Axes : 050 014 056 degrees QTc Int : 436 ms NORMAL SINUS RHYTHM POSSIBLE LATERAL INFARCT (CITED ON OR BEFORE 04-MAY-2019) ABNORMAL ECG WHEN COMPARED WITH ECG OF 04-MAY-2019 18:15, VENT. RATE HAS DECREASED T WAVE VARIATION Confirmed by PAULA VAUGHAN, THANH ([id number]) on 11/20/2019 9:40:50 AM Referred By: Confirmed By:THANH MITCHELL MD
[2019-11-20] MEDS ORDERED: CEFTRIAXONE 1 GM in DEXTROSE 5%-WATER - 50 ML IVPB SCH (10:00)
[2019-11-20] MEDS ORDERED: PATIENT'S OWN MEDICATION (NON-FORMULARY) (Esomeprazole Magnesium [Nexium 24hr] 40 MG) PO SCH (10:00)
--- NOTE | 2019-11-20 12:12 | PN ---
Progress Note (short form) - Note Progress Note: GI NOte: I came to see Ms. Kearney for a GI consultation but she requests that her clay grinder, Dr. Mauricio be consulted. Please consult Dr Mauricio.
[2019-11-20] MEDS ORDERED: HYDROmorphone HCl 2 MG/ML VIAL IM PRN (14:03)
--- NOTE | 2019-11-20 14:32 | CONSULT ---
- Consultation REQUESTING PROVIDER: CONSULT REQUEST: We have been asked to surgically evaluate this patient for diverticular disease.. PCP:Bart Horn HISTORY OF PRESENT ILLNESS: The patient is a 74 yo female who presented for complaints of lower abd pain/pressure. She has a h/o of diverticular disease and was admitted to [facility] this past April for this problem. She recalls having a CT scan at that time(I was unable to find any report for that admission). At the time, she failed outpatient oral antibiotic therapy because she wasn't able to tolerate the antibiotics and was having pain. Since that time, she has been doing well and has been followed by Dr. aMuricio. A recent colonscopy showed an improvement and clinically she had been feeling fell until this weekend. She feels lower abd pressure which is relieved by passing flatus/BM(passing small amounts of stool). She feels chills/fever. PMHx: HTN, DM, variant in heart vessel causing palpatations( stress test last week negative), hyperlipidemia, gastritis, diverticulitis PSHx: cholecystectomy, vaginal hysterectomy, D&C, s/p EGD 03/25-gastritis Home Medications Medication Instructions Recorded metFORMIN HCL [Glucophage -] 1,000 mg PO BID 09/05/13 Esomeprazole Magnesium [Nexium 40 mg PO DAILY 11/02/17 24Hr] Metoprolol Tartrate 50 mg PO HS 11/02/17 Amlodipine Besylate 2.5 mg PO DAILY 04/30/19 Atorvastatin Ca [Lipitor] 5 mg PO HS 04/30/19 Ascorbic Acid [Vitamin C -] 500 mg PO DAILY tablet 05/09/19 Cefuroxime Axetil [Ceftin -] 500 mg PO Q12H 10 Days #20 tablet 05/09/19 Repaglinide [Prandin -] 1 mg PO BID@0700,1700 tablet 05/09/19 metFORMIN HCL [Glucophage -] 1,000 mg PO BID@0700,1630 tablet 05/09/19 metroNIDAZOLE [Flagyl -] 500 mg PO TID 10 Days #30 tablet 05/09/19 Allergies Allergy/AdvReac Type Severity Reaction Status Date / Time levofloxacin [From Levaquin] Allergy Severe Cough Verified 11/19/19 13:20 iodine [Iodine] Allergy Intermediate Rash Verified 11/19/19 13:20 Penicillins Allergy Intermediate Swelling Verified 11/19/19 13:20 shellfish derived Allergy Intermediate Rash Verified 11/19/19 13:20 Sulfa (Sulfonamide Allergy Intermediate Rash Verified 11/19/19 13:20 Antibiotics) [Sulfa(Sulfonamide Antibiotics)] tetracycline [Tetracycline] Allergy Intermediate Rash Verified 11/19/19 13:20 seasonal Allergy Uncoded 11/19/19 13:20 REVIEW OF SYSTEMS: CONSTITUTIONAL: Present: fever, chills CARDIOVASCULAR: Absent: chest pain, syncope, palpitations RESPIRATORY: Absent: shortness of breath, dyspnea with exertion GASTROINTESTINAL: Present: abdominal pain Absent: nausea/emesis NEUROLOGIC: Absent: headache, focal weakness PHYSICAL EXAM: GENERAL: Awake, alert, and fully oriented, in no acute distress. LUNGS: Clear to auscultation bilat anteriorly. HEART: Regular rate and rhythm. ABDOMEN: Soft, not distended, no guarding, no rebound, no masses. Mild suprapubic tenderness/LLQ. MUSCULOSKELETAL: Normal ROM at all joints. No bony deformities or tenderness. LOWER EXTREMITIES: 2+ pulses, warm, well-perfused. No calf tenderness. No peripheral edema. NEUROLOGICAL: Normal speech, gait not observed. PSYCH: Cooperative. Good eye contact. Appropriate mood and affect. Vital Signs Temperature 98.1 F 11/20/19 08:00 Pulse Rate 70 11/20/19 08:00 Respiratory Rate 20 11/20/19 08:00 Blood Pressure 137/75 11/20/19 08:00 O2 Sat by Pulse Oximetry (%) 95 11/20/19 09:00 Lab Results WBC 9.0 K/mm3 (4.0-10.0) 11/20/19 07:50 RBC 3.65 M/mm3 (3.60-5.2) 11/20/19 07:50 Hgb 10.2 GM/dL (10.7-15.3) L 11/20/19 07:50 Hct 30.2 % (32.4-45.2) L 11/20/19 07:50 MCV 82.7 fl (80-96) 11/20/19 07:50 MCHC 33.9 g/dl (32.0-36.0) 11/20/19 07:50 RDW 15.3 % (11.6-15.6) 11/20/19 07:50 Plt Count 200 K/MM3 (134-434) 11/20/19 07:50 Sodium 140 mmol/L (136-145) 11/20/19 07:50 Potassium 3.6 mmol/L (3.5-5.1) 11/20/19 07:50 Chloride 108 mmol/L (98-107) H 11/20/19 07:50 Carbon Dioxide 28 mmol/L (21-32) 11/20/19 07:50 Anion Gap 5 MMOL/L (8-16) L 11/20/19 07:50 BUN 8.1 mg/dL (7-18) 11/20/19 07:50 Creatinine 0.6 mg/dL (0.55-1.3) 11/20/19 07:50 Random Glucose 114 mg/dL (74-106) H 11/20/19 07:50 Calcium 8.2 mg/dL (8.5-10.1) L 11/20/19 07:50 Blood Type A POSITIVE 11/19/19 21:48 Antibody Screen Negative 11/19/19 12:56 INR 1.18 (0.83-1.09) H 11/20/19 07:50 Laboratory Tests 11/19/19 11/19/19 11/20/19 12:56 12:56 07:50 WBC 14.6 H 9.0 Urine Color Yellow Urine Appearance Clear Urine pH 6.0 Ur Specific [place] 1.005 L Urine Protein Negative Urine Glucose (UA) 2+ H Urine Ketones Negative Urine Blood Negative Urine Nitrite Negative Urine Bilirubin Negative Urine Urobilinogen 0.2 Ur Leukocyte Esterase Negative ladctic acid 2.1 CT scan: acute sigmoid diverticulitis without any abscess formation. (non- contrast study) Problem List - Problems (1) Diverticulitis Assessment/Plan: 74 yo female with acute sigmoid divertisulitis Case D/w Dr. Lloyd and will continue npo/IV hydration/IV abx. At this time , she does not appear to require any acute surgical intervention. She remain afebrile with improved leukocytosis. Ct scan without oral/iv contrast- no evidence of any perforation/collection. The patient appears to have minimal pain with exam today. Recommend GI eval, Dr. Mauricio who has been treating her in the past. If the patient continues to have recurrent attacks of her diverticultis, she may require surgical intervention and should f/u with Dr. Lloyd as an outpatient. For now, surgery to follow the patient. Code(s): K57.92 - DVTRCLI OF INTEST, PART UNSP, W/O PERF OR ABSCESS W/O BLEED
--- NOTE | 2019-11-20 15:14 | PN ---
Progress Note (short form) - Note Progress Note: ID consult dictated imp/reccd 74 yo female admitted with abdominal pain-LLQ- she start haveing abdominal cramps after going out to dinner William night, she has been having frequent small soft BMS, no blood +chills prior episode of diverticulitis April 2019 acute sigmoid diverticulitis multiple antibiotic allergies continue ceftriaxone/flagyl GI f/u Problem List - Problems (1) Diverticulitis Code(s): K57.92 - DVTRCLI OF INTEST, PART UNSP, W/O PERF OR ABSCESS W/O BLEED (2) Allergy to multiple antibiotics Code(s): Z88.1 - ALLERGY STATUS TO OTHER ANTIBIOTIC AGENTS STATUS
[2019-11-20] MEDS ORDERED: INSULIN SLIDING SCALE (NOVOLOG) 1 VIAL SQ SCH (16:30)
[2019-11-20] MEDS: ACETAMINOPHEN 1000 MG/100 ML VIAL (NON FORMULARY) IVPB PRN (16:33)
[2019-11-20] MEDS: LACTATED RINGERS SOLUTION 1,000 ML IV SCH (18:04)
--- NOTE | 2019-11-20 19:40 | CONS ---
DATE OF CONSULTATION: 11/20/2019 REASON FOR CONSULTATION: Diverticulitis, recurrent. CONSULTATION REQUESTED BY: Attending physician. BRIEF HISTORY: This is a 74-year-old female with history, diabetes, and a heart condition as well as hyperlipidemia and gastritis who presents with her second episode of noncomplicated diverticulitis. She was started on intravenous antibiotics and the request was made for surgical evaluation. PAST SURGICAL HISTORY: Includes cholecystectomy, a hysterectomy, dilatation and curettage. FAMILY HISTORY: Noncontributory. HOME MEDICATIONS: Include metformin, Nexium, metoprolol, Norvasc, Lipitor, Prandin. ALLERGIES: LEVAQUIN, IODINE, PENICILLIN and SHELLFISH. REVIEW OF SYSTEMS: General: Denies fatigue or malaise. Cardiac: Denies chest pain. Respiratory: Denies shortness of breath. Gastrointestinal: Admits to lower abdominal pain, particularly on the left, and occasional chills. She denies nausea, denies vomiting, denies diarrhea. Genitourinary: Denies dysuria. Denies air in her urine. Denies stool in her urine. Musculoskeletal: Denies joint pain. Psychiatric: Denies depression or hearing voices. PHYSICAL EXAMINATION: General: This is a well-developed, well-nourished 74-year-old female in no distress. Vital Signs: She is afebrile. Her vital signs are stable. HEENT: Her head is normocephalic. Sclerae are anicteric. Neck: Supple. Chest: Clear. Abdomen: Soft. There is minimal left lower quadrant tenderness. There is no rebound. There is no guarding. There is a well-healed Pfannenstiel incision. There are no obvious hernias. Extremities: Have no edema. REVIEW OF LABORATORY: White blood cell count is normal at 9.0. It was 14.6 on admission. She did have a shift on admission. Her chemistries are unremarkable. Her urinalysis is unremarkable. REVIEW OF IMAGING: She has a CAT scan of her abdomen and pelvis which shows acute sigmoid diverticulitis without abscess. It is noted to be in the mid-sigmoid colon where there are multiple diverticula identified as well. She states she has had a colonoscopy within the past year which was unremarkable. ASSESSMENT: This is a 74-year-old female with her second bout of uncomplicated diverticulitis. Her last bout was approximately 6 months ago. Of both films it is the same segment that is involved and it is the mid-sigmoid. Therefore the patient has recurrent uncomplicated diverticulitis. This is her second episode. PLAN: She can consider an elective surgical resection after 6 weeks' time to prevent future recurrence. However, it may be best to allow her to have more events before subjecting to major surgery. She will discuss this with Dr. Mauricio, her real estate closer, and make recommendations. As far as this admission, she appears to be nontoxic. Her white blood cell count has normalized and she seems to be successfully being treated medically. I would keep her n.p.o. until her tenderness resolves. Obviously if she decompensates I will be available for partial colectomy and colostomy. The patient is welcome to follow with me in 4-6 weeks' time to discuss surgical options. DO SHARIF MUNGUIA/[id number]
--- NOTE | 2019-11-20 20:23 | CONS ---
INFECTIOUS DISEASE CONSULTATION DATE OF CONSULTATION: DATE OF DICTATION: 11/20/2019 This is a 74-year-old woman with a past medical history of hypertension, hyperlipidemia. She has a history of diverticulitis back in April 2019, who comes to the emergency room with abdominal pain for 2 days. She went out for dinner on Wednesday night. She had prime rib, string beans, and [place]. After she got home, she started having cramps at 2-3 in the morning with some soft stools. She thought maybe she had eaten something bad, and the pain would go away, but it did not. It persisted, and she presented to the emergency room. As well, she then developed left lower quadrant pain. She noted she had chills and sweats at home. She was seen in the ER on the lfth, yesterday afternoon. She had a CAT scan done in the emergency room, that was notable for acute sigmoid diverticulitis. PAST MEDICAL HISTORY: Notable for a history of diverticulitis in June 2019, gastroparesis, uterine prolapse, diabetes, hypertension, hyperlipidemia, and GERD. SURGICAL HISTORY: Notable for hysterectomy, cholecystectomy, and breast augmentation. ALLERGIES: She is allergic to LEVAQUIN, IODINE, PENICILLIN, SULFA, and TETRACYCLINE. Has gotten cephalosporins in the past. She reports that her prior episode of diverticulitis, she did not "become normal" until August, and she had a colonoscopy in September with Dr. Mauricio. She has been well. There is no history of any travel. She has no sick contacts. MEDICATIONS AT HOME: Include metformin, Nexium, metoprolol, amlodipine, atorvastatin, vitamin C, Prandin, and Glucophage. REVIEW OF SYSTEMS: As per HPI. She has no nikki diarrhea. She has had multiple small stools. There is no blood in her stools. She has had subjective fevers and chills. She has no respiratory symptoms. She has no cough or shortness of breath. She has no chest pain. She has no dysuria. PHYSICAL EXAMINATION: Vital Signs: She has had no fever since admission. Her temperature is 98.1. Pulse is 75. Blood pressure is 137/75. Respiratory rate is 20. She is saturating 95% on room air. General: She is a pleasant woman in no acute distress. HEENT: She is normocephalic. Her eyes are anicteric. Neck: Supple. Lungs: Clear to auscultation. Heart: Regular rate and rhythm. Abdomen: Soft. She has some mild left lower quadrant tenderness. Extremities: Without edema. LABORATORY DATA: White count on admission was 14.6; this morning 9. Her BUN is 8 and creatinine 0.6. Urinalysis is negative. Blood cultures are pending. CAT scan findings are as previously stated. In summary, this is a 74-year-old woman admitted with acute sigmoid diverticulitis. With multiple antibiotic allergies, I would continue ceftriaxone and Flagyl as she seems to be clinically improved. In fact, she is hungry and wishes to eat. Awaiting GI followup. SIMONA SOSA M.D. [id number]
[2019-11-20] MEDS: METOPROLOL TARTRATE 50 MG TABLET (FP) PO SCH (21:47)
[2019-11-21] MEDS: ACETAMINOPHEN 1000 MG/100 ML VIAL (NON FORMULARY) IVPB PRN ×2 (02:24→18:48)
--- NOTE | 2019-11-21 08:31 | CON.GI ---
Consult Consult Specialty:: GI Referred by:: Dr Bart Horn Reason for Consultation:: Diverticulitis - History of Present Illness History of Present Illness: Patient is a 74 y/o female with past medical history of HTN, HLD, CAD s/p Cardiac Cath, Angina, and DM. Patient states on 11/17/19 after going out to eat she developed intermittent lower abdominal cramping. She states after pain would begin she would have a BM shortly after, denies diarrhea but states the stool is non-bloody and loose. On Wednesday she states the pain became more constant and she presented to ER. CTAP shows findings consistent with acute sigmoid diverticulitis without abscess formation. On admission labs showed leukocytosis with WBC 14.6, repeat labs shows downtrend with WBC 9.0. Denies vomiting, rectal bleeding, blood in stool, melena. - History Source History Provided By: Patient Limitations to Obtaining History: No Limitations - Past Medical History Cardio/Vascular: Yes: CAD, HTN, Hyperlipdemia Gastrointestinal: Yes: Diverticulitis, GERD, Hiatal Hernia (GASTROPARESIS, VISCERAL NEUROPATHY), Other ...: No Endocrine: Yes: Diabetes Mellitus - Past Surgical History Past Surgical History: Yes: Cholecystectomy, Hysterectomy - Alcohol/Substance Use Hx Alcohol Use: No History of Substance Use: reports: None - Smoking History Smoking history: Never smoked Have you smoked in the past 12 months: No Aproximately how many cigarettes per day: 0 - Social History ADL: Independent Occupation: Retired History of Recent Travel: No Home Medications - Allergies Allergies/Adverse Reactions: Allergies Allergy/AdvReac Type Severity Reaction Status Date / Time levofloxacin [From Levaquin] Allergy Severe Cough Verified 11/19/19 13:20 iodine [Iodine] Allergy Intermediate Rash Verified 11/19/19 13:20 Penicillins Allergy Intermediate Swelling Verified 11/19/19 13:20 shellfish derived Allergy Intermediate Rash Verified 11/19/19 13:20 Sulfa (Sulfonamide Allergy Intermediate Rash Verified 11/19/19 13:20 Antibiotics) [Sulfa(Sulfonamide Antibiotics)] tetracycline [Tetracycline] Allergy Intermediate Rash Verified 11/19/19 13:20 seasonal Allergy Uncoded 11/19/19 13:20 - Home Medications Home Medications: Ambulatory Orders metFORMIN HCL [Glucophage -] 1,000 mg PO BID 09/05/13 Esomeprazole Magnesium [Nexium 24Hr] 40 mg PO DAILY 11/02/17 Metoprolol Tartrate 50 mg PO HS 11/02/17 Amlodipine Besylate 2.5 mg PO DAILY 04/30/19 Atorvastatin Ca [Lipitor] 5 mg PO HS 04/30/19 Ascorbic Acid [Vitamin C -] 500 mg PO DAILY tablet 05/09/19 Cefuroxime Axetil [Ceftin -] 500 mg PO Q12H 10 Days #20 tablet 05/09/19 Repaglinide [Prandin -] 1 mg PO BID@0700,1700 tablet 05/09/19 metFORMIN HCL [Glucophage -] 1,000 mg PO BID@0700,1630 tablet 05/09/19 metroNIDAZOLE [Flagyl -] 500 mg PO TID 10 Days #30 tablet 05/09/19 Review of Systems - Review of Systems Constitutional: reports: No Symptoms Eyes: reports: No Symptoms HENT: reports: No Symptoms Neck: reports: No Symptoms Cardiovascular: reports: No Symptoms Respiratory: reports: No Symptoms Gastrointestinal: reports: Abdominal Pain, Nausea Genitourinary: reports: No Symptoms Breasts: reports: No Symptoms Reported Musculoskeletal: reports: No Symptoms Integumentary: reports: No Symptoms Neurological: reports: No Symptoms Endocrine: reports: No Symptoms Hematology/Lymphatic: reports: No Symptoms Psychiatric: reports: No Symptoms Physical Exam-GI Vital Signs: Vital Signs Temperature 98 F 11/21/19 01:00 Pulse Rate 75 11/21/19 01:00 Respiratory Rate 20 11/21/19 01:00 Blood Pressure 115/58 L 11/21/19 01:00 O2 Sat by Pulse Oximetry (%) 98 11/20/19 21:00 Constitutional: Yes: No Distress, Calm Eyes: Yes: Conjunctiva Clear HENT: Yes: Atraumatic Cardiovascular: Yes: Regular Rate and Rhythm Respiratory: Yes: Regular, CTA Bilaterally Gastrointestinal Inspection: Yes: WNL. No: Ascites, Distention, Hernia, Scars, Other ...Auscultate: Yes: Normoactive Bowel Sounds. No: Hyperactive Bowel Sounds, Hypoactive Bowel Sounds, No Bowel Sounds, Other ...Palpate: Yes: Soft, Tenderness (llq), Tenderness, Epigastium. No: Firm/Rigid , Guarding, Hepatomegaly, Mass, Pulsatile Mass, Splenomegaly, Tenderness, Rebound, Other ...Percussion: Yes: Tympanitic. No: Dullness, Fluid Wave, Other Neurological: Yes: Alert, Oriented Psychiatric: Yes: Alert, Oriented Labs: CBC, BMP 11/20/19 07:50 11/20/19 07:50 INR, PTT INR 1.18 (0.83-1.09) H 11/20/19 07:50 Active Medications Generic Name Dose Route Start Last Admin Trade Name Freq PRN Reason Stop Dose Admin Acetaminophen 1,000 mg 11/20/19 16:17 11/21/19 02:24 Ofirmev Injection - IVPB 1,000 mg Q8H PRN Administration PAIN SCALE 1-6 Amlodipine Besylate 2.5 mg 11/20/19 10:00 11/20/19 09:15 Norvasc - PO 2.5 mg DAILY CRISTINA Administration Heparin Sodium (Porcine) 5,000 unit 11/19/19 22:00 11/20/19 21:48 Heparin - SQ 5,000 unit BID CRISTINA Administration Hydromorphone HCl 1 mg 11/20/19 14:03 Dilaudid Vial - IM Q4H PRN PAIN LEVEL 6-10 Metronidazole 500 mg in 100 mls @ 100 mls/hr 11/19/19 18:00 11/21/19 02:27 Flagyl 500mg Premixed Ivpb - IVPB 100 mls/hr Q8H-IV CRISTINA Administration Lactated Ringer's 1,000 mls @ 100 mls/hr 11/19/19 17:30 11/20/19 18:04 Lactated Ringers Solution IV 100 mls/hr ASDIR CRISTINA Administration Ceftriaxone Sodium 2 gm/ 100 mls @ 200 mls/hr 11/21/19 10:00 Dextrose IVPB DAILY CRISTINA Protocol Insulin Aspart 1 vial 11/20/19 16:30 Novolog Vial Sliding Scale - SQ ACHS CRISTINA Protocol Metoprolol Tartrate 50 mg 11/19/19 22:00 11/20/19 21:47 Lopressor - PO 50 mg HS CRISTINA Administration Ondansetron HCl 4 mg 11/19/19 17:25 11/21/19 06:36 Zofran Injection IVPUSH 4 mg Q6H PRN Administration NAUSEA Pantoprazole Sodium 40 mg 11/20/19 10:00 11/20/19 09:15 Protonix - PO 40 mg DAILY CRISTINA Administration Imaging - Results Cat Scan: Report Reviewed Problem List - Problems (1) Diverticulitis Code(s): K57.92 - DVTRCLI OF INTEST, PART UNSP, W/O PERF OR ABSCESS W/O BLEED
[2019-11-21] MEDS ORDERED: DEXTROSE 5%-WATER 100 ML IVPB ONE (10:05)
[2019-11-21] MEDS: CEFTRIAXONE 2 GM in DEXTROSE 5%-WATER 100 ML IVPB SCH (10:16)
[2019-11-21] MEDS: amLODIPine BESYLATE 2.5 MG TABLET (FP) PO SCH (10:16)
[2019-11-21] MEDS: PANTOPRAZOLE 40 MG TABLET PO SCH (10:16)
[2019-11-21] MEDS: HEPARIN NA (PORCINE) 5,000 UNITS/ML 1ML VIAL SQ SCH ×2 (10:17→21:46)
--- NOTE | 2019-11-21 10:45 | PN ---
Problem List - Problems (1) Diverticulitis Code(s): K57.92 - DVTRCLI OF INTEST, PART UNSP, W/O PERF OR ABSCESS W/O BLEED
--- NOTE | 2019-11-21 11:14 | PN ---
Progress Note, Physician Chief Complaint: Diverticulitis History of Present Illness: NAD abd pain improved Tolerating clear liquids Seen by GI + Surgery, no surgical intervention recommended at this time. - Current Medication List Current Medications: Active Medications Acetaminophen (Ofirmev Injection -) 1,000 mg IVPB Q8H PRN PRN Reason: PAIN SCALE 1-6 Last Admin: 11/21/19 02:24 Dose: 1,000 mg Amlodipine Besylate (Norvasc -) 2.5 mg PO DAILY [facility] Last Admin: 11/21/19 10:16 Dose: 2.5 mg Heparin Sodium (Porcine) (Heparin -) 5,000 unit SQ BID CRISTINA Last Admin: 11/21/19 10:17 Dose: 5,000 unit Hydromorphone HCl (Dilaudid Vial -) 1 mg IM Q4H PRN PRN Reason: PAIN LEVEL 6-10 Metronidazole (Flagyl 500mg Premixed Ivpb -) 500 mg in 100 mls @ 100 mls/hr IVPB Q8H-IV CRISTINA Last Admin: 11/21/19 10:16 Dose: 100 mls/hr Lactated Ringer's (Lactated Ringers Solution) 1,000 mls @ 100 mls/hr IV ASDIR [facility] Last Admin: 11/20/19 18:04 Dose: 100 mls/hr Ceftriaxone Sodium 2 gm/ (Dextrose) 100 mls @ 200 mls/hr IVPB DAILY [facility]; Protocol Last Admin: 11/21/19 10:16 Dose: 200 mls/hr Insulin Aspart (Novolog Vial Sliding Scale -) 1 vial SQ ACHS [facility]; Protocol Metoprolol Tartrate (Lopressor -) 50 mg PO HS [facility] Last Admin: 11/20/19 21:47 Dose: 50 mg Ondansetron HCl (Zofran Injection) 4 mg IVPUSH Q6H PRN PRN Reason: NAUSEA Last Admin: 11/21/19 06:36 Dose: 4 mg Pantoprazole Sodium (Protonix -) 40 mg PO DAILY [facility] Last Admin: 11/21/19 10:16 Dose: 40 mg - Objective Vital Signs: Vital Signs Temperature 98 F 11/21/19 07:00 Pulse Rate 81 11/21/19 07:00 Respiratory Rate 20 11/21/19 09:00 Blood Pressure 131/62 11/21/19 07:00 O2 Sat by Pulse Oximetry (%) 94 L 11/21/19 09:00 Constitutional: Yes: Well Nourished, No Distress, Calm Cardiovascular: Yes: Regular Rate and Rhythm Respiratory: Yes: Regular Gastrointestinal: Yes: Normal Bowel Sounds, Soft, Tenderness (LLQ) Genitourinary: Yes: WNL Musculoskeletal: Yes: WNL Extremities: Yes: WNL Edema: No Peripheral Pulses WNL: Yes Neurological: Yes: Alert, Oriented Psychiatric: Yes: Alert, Oriented Labs: CBC, BMP 11/20/19 07:50 11/20/19 07:50 INR, PTT INR 1.18 (0.83-1.09) H 11/20/19 07:50 Problem List - Problems (1) Diverticulitis Assessment/Plan: -Seen by GI -IV flagyl -IVF -Clear liquids -pain management -Seen by surgery as well, no surgical intervention recommended at this time Problems reviewed: Yes Code(s): K57.92 - DVTRCLI OF INTEST, PART UNSP, W/O PERF OR ABSCESS W/O BLEED (2) Abdominal pain Problems reviewed: Yes Code(s): R10.9 - UNSPECIFIED ABDOMINAL PAIN (3) Diabetes Assessment/Plan: -BGM AC HS -Hold home meds -IVF Problems reviewed: Yes Code(s): E11.9 - TYPE 2 DIABETES MELLITUS WITHOUT COMPLICATIONS
[2019-11-21] MEDS: LACTATED RINGERS SOLUTION 1,000 ML IV SCH (18:01)
[2019-11-21] MEDS: METOPROLOL TARTRATE 50 MG TABLET (FP) PO SCH (21:46)
[2019-11-22] MEDS ORDERED: DEXTROSE 5%-WATER 100 ML IVPB ONE (09:05)
[2019-11-22] MEDS: PANTOPRAZOLE 40 MG TABLET PO SCH (09:43)
[2019-11-22] MEDS: amLODIPine BESYLATE 2.5 MG TABLET (FP) PO SCH (09:43)
[2019-11-22] MEDS: CEFTRIAXONE 2 GM in DEXTROSE 5%-WATER 100 ML IVPB SCH (09:44)
[2019-11-22] MEDS: HEPARIN NA (PORCINE) 5,000 UNITS/ML 1ML VIAL SQ SCH ×2 (09:44→21:32)
--- NOTE | 2019-11-22 10:29 | PN ---
Progress Note, Physician Chief Complaint: Diverticulitis History of Present Illness: NAD abd pain improved Tolerating clear liquids Seen by GI + Surgery, no surgical intervention recommended at this time. mild LLQ pain on palpation - Current Medication List Current Medications: Active Medications Acetaminophen (Ofirmev Injection -) 1,000 mg IVPB Q8H PRN PRN Reason: PAIN SCALE 1-6 Last Admin: 11/21/19 18:48 Dose: 1,000 mg Amlodipine Besylate (Norvasc -) 2.5 mg PO DAILY [facility] Last Admin: 11/22/19 09:43 Dose: 2.5 mg Heparin Sodium (Porcine) (Heparin -) 5,000 unit SQ BID [facility]INA Last Admin: 11/22/19 09:44 Dose: 5,000 unit Hydromorphone HCl (Dilaudid Vial -) 1 mg IM Q4H PRN PRN Reason: PAIN LEVEL 6-10 Metronidazole (Flagyl 500mg Premixed Ivpb -) 500 mg in 100 mls @ 100 mls/hr IVPB Q8H-IV C[facility]STINA Last Admin: 11/22/19 01:53 Dose: 100 mls/hr Lactated Ringer's (Lactated Ringers Solution) 1,000 mls @ 100 mls/hr IV ASDIR CRISTINA Last Admin: 11/21/19 18:01 Dose: 100 mls/hr Ceftriaxone Sodium 2 gm/ (Dextrose) 100 mls @ 200 mls/hr IVPB DAILY [facility]; Protocol Last Admin: 11/22/19 09:44 Dose: 200 mls/hr Insulin Aspart (Novolog Vial Sliding Scale -) 1 vial SQ ACHS [facility]; Protocol Metoprolol Tartrate (Lopressor -) 50 mg PO HS [facility] Last Admin: 11/21/19 21:46 Dose: 50 mg Ondansetron HCl (Zofran Injection) 4 mg IVPUSH Q6H PRN PRN Reason: NAUSEA Last Admin: 11/21/19 06:36 Dose: 4 mg Pantoprazole Sodium (Protonix -) 40 mg PO DAILY [facility] Last Admin: 11/22/19 09:43 Dose: 40 mg - Objective Vital Signs: Vital Signs Temperature 98.0 F 11/22/19 05:20 Pulse Rate 63 11/22/19 05:20 Respiratory Rate 20 11/22/19 05:20 Blood Pressure 139/87 11/22/19 05:20 O2 Sat by Pulse Oximetry (%) 94 L 11/21/19 09:00 Constitutional: Yes: Well Nourished, No Distress, Calm Cardiovascular: Yes: Regular Rate and Rhythm Respiratory: Yes: Regular Gastrointestinal: Yes: Normal Bowel Sounds, Soft, Tenderness (LLQ) Genitourinary: Yes: WNL Musculoskeletal: Yes: WNL Extremities: Yes: WNL Edema: No Peripheral Pulses WNL: Yes Neurological: Yes: Alert, Oriented Psychiatric: Yes: Alert, Oriented Labs: CBC, BMP 11/20/19 07:50 11/20/19 07:50 INR, PTT INR 1.18 (0.83-1.09) H 11/20/19 07:50 Problem List - Problems (1) Diverticulitis Assessment/Plan: -Seen by GI -IV flagyl -D/C IVF, encourage PO fluids -Advance diet to full liquids -pain management -Seen by surgery as well, no surgical intervention recommended at this time Problems reviewed: Yes Code(s): K57.92 - DVTRCLI OF INTEST, PART UNSP, W/O PERF OR ABSCESS W/O BLEED (2) Abdominal pain Problems reviewed: Yes Code(s): R10.9 - UNSPECIFIED ABDOMINAL PAIN (3) Diabetes Assessment/Plan: -D/C BGM -blood sugars well controlled -Continue dietary modification Problems reviewed: Yes Code(s): E11.9 - TYPE 2 DIABETES MELLITUS WITHOUT COMPLICATIONS Assessment/Plan see problem list if tolerates diet today, will try regular diet in AM, will d/c home if tolerating regular diet.
--- NOTE | 2019-11-22 15:56 | PN ---
Progress Note (short form) - Note Progress Note: doing well no abdominal plain diet being advanced Vital Signs Period Temp Pulse Resp BP Sys/Nichols Pulse Ox Last 24 Hr 97.5 F-98.2 F 63-73 18-20 137-156/72-87 97 cor-rrr lungs clear abd soft,nt ext no edema CBC, BMP 11/20/19 07:50 11/20/19 07:50 Microbiology 11/19/19 19:16 Blood - Peripheral Venous Blood Culture - Preliminary NO GROWTH OBTAINED AFTER 48 HOURS, INCUBATION TO CONTINUE FOR 3 DAYS. 11/19/19 19:10 Blood - Peripheral Venous Blood Culture - Preliminary NO GROWTH OBTAINED AFTER 48 HOURS, INCUBATION TO CONTINUE FOR 3 DAYS. 11/19/19 12:56 Urine - Urine Clean Catch Urine Culture - Final Strep Agalactiae Group B prior episode of diverticulitis April 2019 a/p acute sigmoid diverticulitis multiple antibiotic allergies continue ceftriaxone/flagyl can switch to po ceftin/flagyl in am please call back if needed Problem List - Problems (1) Diverticulitis Code(s): K57.92 - DVTRCLI OF INTEST, PART UNSP, W/O PERF OR ABSCESS W/O BLEED (2) Allergy to multiple antibiotics Code(s): Z88.1 - ALLERGY STATUS TO OTHER ANTIBIOTIC AGENTS STATUS
[2019-11-22] MEDS: METOPROLOL TARTRATE 50 MG TABLET (FP) PO SCH (21:32)
--- NOTE | 2019-11-23 08:39 | PN.GI ---
GI Progress Note Subjective: Patient states that her abdominal pain is improving. Denies nausea, vomiting, diarrhea, constipation, melena, blood in stool. Labs show no leukocytosis and is currently afebrile. Tolerating full liquid diet. - Objective Vital Signs: Vital Signs Temperature 98.1 F 11/23/19 05:25 Pulse Rate 57 L 11/23/19 05:25 Respiratory Rate 20 11/23/19 05:25 Blood Pressure 131/61 11/23/19 05:25 O2 Sat by Pulse Oximetry (%) 97 11/22/19 21:00 Constitutional: No Distress, Calm Eyes: Yes: Conjunctiva Clear HENT: Yes: Atraumatic Cardiovascular: Yes: Regular Rate and Rhythm Respiratory: Yes: Regular, CTA Bilaterally Gastrointestinal Inspection: Yes: WNL. No: Ascites, Distention, Hernia, Scars, Other ...Auscultate: Yes: Normoactive Bowel Sounds. No: Hyperactive Bowel Sounds, Hypoactive Bowel Sounds, No Bowel Sounds, Other ...Palpate: Yes: Soft, Tenderness (mild, diffuse). No: Firm/Rigid, Guarding, Hepatomegaly, Mass, Pulsatile Mass, Splenomegaly, Tenderness, Epigastium, Tenderness, Rebound, Other ...Percussion: Yes: Tympanitic. No: Dullness, Fluid Wave, Other Neurological: Yes: Alert, Oriented Psychiatric: Yes: Alert, Oriented Labs: CBC, BMP 11/20/19 07:50 11/20/19 07:50 INR, PTT INR 1.18 (0.83-1.09) H 11/20/19 07:50 Active Medications Generic Name Dose Route Start Last Admin Trade Name Jovita PRN Reason Stop Dose Admin Acetaminophen 1,000 mg 11/20/19 16:17 11/21/19 18:48 Ofirmev Injection - IVPB 1,000 mg Q8H PRN Administration PAIN SCALE 1-6 Amlodipine Besylate 2.5 mg 11/20/19 10:00 11/22/19 09:43 Norvasc - PO 2.5 mg DAILY [facility] Administration Heparin Sodium (Porcine) 5,000 unit 11/19/19 22:00 11/22/19 21:32 Heparin - SQ 5,000 unit BID C[facility]STINA Administration Hydromorphone HCl 1 mg 11/20/19 14:03 Dilaudid Vial - IM Q4H PRN PAIN LEVEL 6-10 Metronidazole 500 mg in 100 mls @ 100 mls/hr 11/19/19 18:00 11/23/19 02:25 Flagyl 500mg Premixed Ivpb - IVPB 100 mls/hr Q8H-IV C[facility]STINA Administration Ceftriaxone Sodium 2 gm/ 100 mls @ 200 mls/hr 11/21/19 10:00 11/22/19 09:44 Dextrose IVPB 200 mls/hr DAILY [facility] Administration Protocol Metoprolol Tartrate 50 mg 11/19/19 22:00 11/22/19 21:32 Lopressor - PO 50 mg HS [facility]INA Administration Ondansetron HCl 4 mg 11/19/19 17:25 11/21/19 06:36 Zofran Injection IVPUSH 4 mg Q6H PRN Administration NAUSEA Pantoprazole Sodium 40 mg 11/20/19 10:00 11/22/19 09:43 Protonix - PO 40 mg DAILY [facility] Administration Problem List - Problems (1) Diverticulitis Assessment/Plan: >low-fiber, lactose free diet >can discharge home on Levaquin 500mg daily x 7 days >made aware to follow up as outpatient for further work-up Code(s): K57.92 - DVTRCLI OF INTEST, PART UNSP, W/O PERF OR ABSCESS W/O BLEED
[2019-11-23] MEDS ORDERED: DEXTROSE 5%-WATER 100 ML IVPB ONE (09:17)
[2019-11-23] MEDS: CEFTRIAXONE 2 GM in DEXTROSE 5%-WATER 100 ML IVPB SCH (09:32)
[2019-11-23] MEDS: PANTOPRAZOLE 40 MG TABLET PO SCH (09:33)
[2019-11-23] MEDS: HEPARIN NA (PORCINE) 5,000 UNITS/ML 1ML VIAL SQ SCH (09:33)
[2019-11-23] MEDS: amLODIPine BESYLATE 2.5 MG TABLET (FP) PO SCH (10:49)
[2019-11-23 11:09] VITALS: BP 158/77; PULSE 71; TEMP 98
--- NOTE | 2019-11-23 11:10 | PN ---
Progress Note, Physician Chief Complaint: Diverticulitis History of Present Illness: NAD abd pain improved Tolerating PO intake Seen by GI + Surgery, no surgical intervention recommended at this time. cleared to be dc'd home - Current Medication List Current Medications: Active Medications Acetaminophen (Ofirmev Injection -) 1,000 mg IVPB Q8H PRN PRN Reason: PAIN SCALE 1-6 Last Admin: 11/21/19 18:48 Dose: 1,000 mg Amlodipine Besylate (Norvasc -) 2.5 mg PO DAILY [facility] [place] Last Admin: 11/23/19 10:49 Dose: 2.5 mg Heparin Sodium (Porcine) (Heparin -) 5,000 unit SQ BID [facility] [place] Last Admin: 11/23/19 09:33 Dose: 5,000 unit Hydromorphone HCl (Dilaudid Vial -) 1 mg IM Q4H PRN PRN Reason: PAIN LEVEL 6-10 Metronidazole (Flagyl 500mg Premixed Ivpb -) 500 mg in 100 mls @ 100 mls/hr IVPB Q8H-IV [facility] Last Admin: 11/23/19 10:49 Dose: 100 mls/hr Ceftriaxone Sodium 2 gm/ (Dextrose) 100 mls @ 200 mls/hr IVPB DAILY [facility] [place]; Protocol Last Admin: 11/23/19 09:32 Dose: 200 mls/hr Metoprolol Tartrate (Lopressor -) 50 mg PO HS [facility] [place] Last Admin: 11/22/19 21:32 Dose: 50 mg Ondansetron HCl (Zofran Injection) 4 mg IVPUSH Q6H PRN PRN Reason: NAUSEA Last Admin: 11/21/19 06:36 Dose: 4 mg Pantoprazole Sodium (Protonix -) 40 mg PO DAILY [facility] [place] Last Admin: 11/23/19 09:33 Dose: 40 mg - Objective Vital Signs: Vital Signs Temperature 98 F 11/23/19 11:00 Pulse Rate 71 11/23/19 11:00 Respiratory Rate 20 11/23/19 11:00 Blood Pressure 158/77 11/23/19 11:00 O2 Sat by Pulse Oximetry (%) 97 11/22/19 21:00 Constitutional: Yes: Well Nourished, No Distress, Calm Cardiovascular: Yes: Regular Rate and Rhythm Respiratory: Yes: Regular Gastrointestinal: Yes: Normal Bowel Sounds, Soft Genitourinary: Yes: WNL Musculoskeletal: Yes: WNL Extremities: Yes: WNL Edema: No Peripheral Pulses WNL: Yes Neurological: Yes: Alert, Oriented Psychiatric: Yes: Alert, Oriented Labs: CBC, BMP 11/20/19 07:50 11/20/19 07:50 INR, PTT INR 1.18 (0.83-1.09) H 11/20/19 07:50 Problem List - Problems (1) Diverticulitis Assessment/Plan: -Seen by GI -IV flagyl -Advance low sodium diabetic diet -pain management -Seen by surgery as well, no surgical intervention recommended at this time Problems reviewed: Yes Code(s): K57.92 - DVTRCLI OF INTEST, PART UNSP, W/O PERF OR ABSCESS W/O BLEED (2) Abdominal pain Problems reviewed: Yes Code(s): R10.9 - UNSPECIFIED ABDOMINAL PAIN (3) Diabetes Assessment/Plan: -D/C BGM -blood sugars well controlled -Continue dietary modification -resume metformin o/p dose Problems reviewed: Yes Code(s): E11.9 - TYPE 2 DIABETES MELLITUS WITHOUT COMPLICATIONS Assessment/Plan see problem list
== END 2019-11-23 13:37 | disposition home or self-care (01) | DRG 392 ==
LOC: JER 12:05 → JERBED 14:19 → J6S 16:19
PROVIDERS: ADMIT Family Medicine; ATTEND Family Medicine
DX: K57.32 Diverticulitis of large intestine without perforation or abscess without bleeding (principal); E87.1 Hypo-osmolality and hyponatremia; I10 Essential (primary) hypertension; E78.5 Hyperlipidemia, unspecified; K21.9 Gastro-esophageal reflux disease without esophagitis; E11.43 Type 2 diabetes mellitus with diabetic autonomic (poly)neuropathy; K31.84 Gastroparesis; N81.4 Uterovaginal prolapse, unspecified; K57.90 Diverticulosis of intestine, part unspecified, without perforation or abscess without bleeding; D72.829 Elevated white blood cell count, unspecified; I25.119 Atherosclerotic heart disease of native coronary artery with unspecified angina pectoris; K44.9 Diaphragmatic hernia without obstruction or gangrene; D64.9 Anemia, unspecified; Z88.1 Allergy status to other antibiotic agents; Z95.5 Presence of coronary angioplasty implant and graft
CPT/HCPCS: 36415; 74176-TC; 80048; 80053; 81003; 82962; 83605; 83690; 83735; 85025; 85610; 85730; 86850; 86900; 86901; 87040; 87086; 93005; 93010; 99283-25; J0131; J1644

== ENCOUNTER 2020-09-23 16:15 | Emergency (ER) | payer OTHER, BC ==
[2020-09-23] MEDS ORDERED: ACETAMINOPHEN 1000 MG/100 ML VIAL (NON FORMULARY) IVPB ONE (17:02)
[2020-09-23] MEDS ORDERED: LACTATED RINGERS SOLUTION 1,000 ML IV STA (17:02)
[2020-09-23] MEDS ORDERED: METOCLOPRAMIDE HCL INJECTION 10 MG/2 ML VIAL IVPUSH ONE (17:02)
[2020-09-23] MEDS ORDERED: FAMOTIDINE 20 MG/50 ML IVPB 20 MG/50 ML MG IVPB ONE ×2 (17:02→17:40)
[2020-09-23 17:34] VITALS: TEMP 98.7; BMI 25.6
[2020-09-23] MEDS ORDERED: METOCLOPRAMIDE HCL INJECTION 10 MG/2 ML VIAL ONE (17:40)
[2020-09-23] MEDS ORDERED: ACETAMINOPHEN INJECTION 100 ML IVPB ONE (17:40)
[2020-09-23 17:53] LABS: BASO % 0.5 % (0-2.0); EOS % 0.6 % (0-4.5); HEMATOCRIT 38.4 % (32.4-45.2); HEMOGLOBIN 12.6 GM/dl (10.7-15.3); LYMPH % 37.4 % (8-40); MCH 27.8 pg (25.7-33.7); MEAN CELL VOLUME 84.3 fl (80-96); MEAN PLT VOLUME 8.7 fl (7.5-11.1); MONO % 8.9 % (3.8-10.2); NEUT % 52.6 % (42.8-82.8); PLATELET COUNT 286 K/MM3 (134-434); RBC 4.55 M/mm3 (3.60-5.2); RDW 13.2 % (11.6-15.6); WHITE BLOOD COUNT 6.6 K/mm3 (4.0-10.8)
[2020-09-23 18:05] LABS: ACTIVATED PTT 27.1 SECONDS (25.2-36.5)
[2020-09-23 18:08] LABS: ALBUMIN 4.7 g/dl (3.4-5.0); BILIRUBIN,TOTAL 0.4 mg/dl (0.2-1); CALCIUM 9.4 mg/dl (8.5-10); CREATININE 0.7 mg/dl (0.55-1.3); POTASSIUM 3.6 mmol/L (3.5-5.1); TOT PROT 7.7 g/dl (6.4-8.2)
[2020-09-23 18:09] LABS: INR 1.11 (0.82-1.09); PROTHROMBIN TIME (PATIENT) 12.3 SEC (10.2-13.0)
[2020-09-23 20:11] VITALS: BP 178/92; PULSE 62
== END 2020-09-23 20:15 | disposition home or self-care (01) ==
LOC: FER 16:15
PROC: 3E033NZ Introduction of Analgesics, Hypnotics, Sedatives into Peripheral Vein, Percutaneous Approach (ICD-10-PCS; principal; 2020-09-23)
PROC: 3E033GC Introduction of Other Therapeutic Substance into Peripheral Vein, Percutaneous Approach (ICD-10-PCS; 2020-09-23)
PROC: 3E0337Z Introduction of Electrolytic and Water Balance Substance into Peripheral Vein, Percutaneous Approach (ICD-10-PCS; 2020-09-23)
DX: R10.13 Epigastric pain (principal)
CPT/HCPCS: 36415; 74176-TC; 80053; 81003; 83605; 83690; 85025; 85610; 85730; 86850; 86900; 86901; 99285-25; J0131

== ENCOUNTER 2024-05-14 15:08 | Emergency (ER) | payer OTHER, MEDICARE ==
[2024-05-14 15:28] VITALS: BP 145/74; PULSE 66; RESP 18; TEMP 97.4; BMI 23.3
[2024-05-14 15:44] LABS: HEMATOCRIT 32.8 % (32.4-45.2); HEMOGLOBIN 10.4 G/dL (10.7-15.3); MCH 25.6 pg (25.7-33.7); MCHC 31.8 g/dl (32.0-36.0); MEAN CELL VOLUME 80.6 fl (80-96); MEAN PLT VOLUME 8.8 fl (7.5-11.1); PLATELET COUNT 268.3 10^3/uL (134-434); RBC 4.07 10^6/uL (3.60-5.2); RDW 17.1 % (11.6-15.6); WHITE BLOOD COUNT 8.5 10^3/uL (4.0-10.8)
[2024-05-14 16:08] LABS: INR 1.54 (0.83-1.09); PROTHROMBIN TIME (PATIENT) 17.3 SEC (9.7-13.0)
[2024-05-14 16:11] LABS: ALBUMIN 4.7 g/dl (3.4-5.0); ALK PHOS 46 U/L (45-117); ANION GAP 13 mmol/L (4-13); BILIRUBIN,TOTAL 0.5 mg/dl (0.2-1); CALCIUM 9.9 mg/dl (8.5-10.1); CHLORIDE 93 mmol/L (98-107); CO2 22 mmol/L (21-32); CREATININE 0.7 mg/dl (0.6-1.3); GLUCOSE,RANDOM 93 mg/dl (74-106); MAGNESIUM 1.4 mg/dL (1.8-2.4); POTASSIUM 3.8 mmol/L (3.5-5.1); SGOT/AST 13 U/L (15-37); SGPT/ALT 11 U/L (7-52); SODIUM 128 mmol/L (136-145)
== END 2024-05-14 17:43 | disposition home or self-care (01) ==
LOC: FER 15:08
DX: R06.02 Shortness of breath (principal); R07.89 Other chest pain; M79.10 Myalgia, unspecified site; M54.6 Pain in thoracic spine; Z20.822 Contact with and (suspected) exposure to COVID-19
CPT/HCPCS: 0241U-QW; 36415; 71046-TC-FY; 80053; 83735; 83880; 84484; 85027; 85379; 85610; 93005; 99285-25

== ENCOUNTER 2024-09-17 13:22 | Emergency (ER) | payer OTHER, MEDICARE ==
[2024-09-17 13:39] VITALS: BP 163/70; PULSE 66; RESP 16; TEMP 98.1; BMI 23.8
== END 2024-09-17 16:21 | disposition home or self-care (01) ==
LOC: FER 13:22
DX: S09.90XA Unspecified injury of head, initial encounter (principal); W52.XXXA Crushed, pushed or stepped on by crowd or human stampede, initial encounter
CPT/HCPCS: 70450-TC; 99284-25

== ENCOUNTER 2024-09-21 14:34 | Emergency (ER) | payer OTHER, MEDICARE ==
[2024-09-21 15:21] VITALS: BP 147/67; PULSE 63; RESP 20; TEMP 98.2; BMI 23.8
[2024-09-21 16:29] LABS: HEMATOCRIT 36.3 % (32.4-45.2); MCH 27.7 pg (25.7-33.7); MCHC 32.9 g/dl (32.0-36.0); MEAN CELL VOLUME 84.1 fl (80-96); MEAN PLT VOLUME 8.7 fl (7.5-11.1); PLATELET COUNT 247.3 10^3/uL (134-434); RBC 4.32 10^6/uL (3.60-5.2); RDW 19.9 % (11.6-15.6); WHITE BLOOD COUNT 7.1 10^3/uL (4.0-10.8)
[2024-09-21 16:50] LABS: ALBUMIN 4.9 g/dl (3.4-5.0); BILIRUBIN,TOTAL 0.4 mg/dl (0.2-1); CALCIUM 9.5 mg/dl (8.5-10.1); CREATININE 0.6 mg/dl (0.6-1.3); MAGNESIUM 1.7 mg/dL (1.8-2.4); POTASSIUM 4.5 mmol/L (3.5-5.1); TOT PROT 6.9 g/dl (6.4-8.2)
[2024-09-21 16:55] LABS: PLATELET ESTIMATE ADEQUATE
== END 2024-09-21 20:19 | disposition home or self-care (01) ==
LOC: FER 14:34
PROC: 3E033GC Introduction of Other Therapeutic Substance into Peripheral Vein, Percutaneous Approach (ICD-10-PCS; principal; 2024-09-21)
DX: R26.81 Unsteadiness on feet (principal); E87.1 Hypo-osmolality and hyponatremia; R20.0 Anesthesia of skin; R20.2 Paresthesia of skin; R42 Dizziness and giddiness; R51.9 Headache, unspecified
CPT/HCPCS: 36415; 70551-TC; 80053; 83735; 84484; 85027; 99284-25